=== PATIENT | female | born 1935 | race Caucasian/White ===

== ENCOUNTER → 2018-07-27 08:00 | Outpatient (CLI) | payer MEDICARE, BC, SELFPAY ==
--- NOTE | 2018-07-27 08:08 | MR_ITS ---
MR clavicle RT wo con HISTORY: Nodule in the midline of body of right clavicle increasing in size ITS.REASON: CLAVICULAR ASYMMETRY ORDERING PHYSICIAN: Red Thibodeaux MD PATIENT AGE: 83 years Comparison: None TECHNIQUE: Standard multiplanar multiecho sequences are performed without contrast. FINDINGS: The report has been delayed waiting on outside studies for comparison made available on 08/09/2018 No clavicular suspicious mass is evident. No destructive lesion. Mild hypertrophic changes are present at the sternoclavicular joint on both sides slightly greater on the right. No soft tissue mass apparent. There is mild acromioclavicular arthropathy with mild hypertrophic change of the right AC joint. There is slight increased T2 signal in the periarticular region of the AC joint suggesting mild pannus formation. There is a small amount of fluid anterior to the distal aspect of the clavicle and in the subcoracoid region as well as the right shoulder joint. The shoulder is incompletely imaged. No fracture or dislocation. IMPRESSION: 1. 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 Slight increased T2 signal at the AC joint suggesting minimal inflammatory change. No bony destructive process soft tissue mass or bony mass evident. 2. Small amount of fluid inferior to the distal clavicle, subcoracoid region, and in the right shoulder joint
== END ==
PROVIDERS: Family Provider Internal Medicine Adolescent Medicine; PCP Internal Medicine Adolescent Medicine; Visit Provider Internal Medicine Adolescent Medicine
DX: Q74.0 Other congenital malformations of upper limb(s), including shoulder girdle (principal); M89.311 Hypertrophy of bone, right shoulder
CPT/HCPCS: 73218

== ENCOUNTER → 2021-06-10 13:09 | Outpatient (CLI) | payer MEDICARE, BC, SELFPAY ==
--- NOTE | 2021-06-10 13:22 | XR_ITS ---
PROCEDURE: XR CHEST 2V CLINICAL HISTORY: FATIGUE, UNSPECIFIED Shortness of breath COMPARISON: CR CHEST PA & LAT from 07/13/2018 FINDINGS: Borderline cardiomegaly without failure. There is a new opacity in the left lower lung zone laterally measuring 16 mm. There is also increased density in the right lung base in the CP angle. Nonspecific opacity is present in the right perihilar region ill-defined and may be due to vascular overlap. Coronary artery calcifications and/or stents noted. Subchondral cysts are present in the left humeral head with osteoarthritic change of the left shoulder and degenerative changes of the spine IMPRESSION: New nodular opacity in the left lower lung zone with new increased density in the right CP angle. The density in the right CP angle could be related to pneumonia with small effusion. Nodular density on the left is indeterminate. Consider chest CT with contrast for further evaluation. Dictated by: Emiliano Fernando MD 06/10/2021 14:05 Emiliano Fernando MD in [facility] 06/10/2021 14:05
[2021-06-10 13:43] LABS: Basophils # 0.1 K/mm3 (0-0.2); Basophils % 0.8 % (0.1-2.0); Eosinophils # 0.2 K/mm3 (0.0-0.4); Eosinophils % 2.4 % (0.1-12.0); Hematocrit 35.2 % (37.0-47.0); Hemoglobin 11.7 g/dL (12.2-16.2); Lymphocytes # 2.8 K/mm3 (0.7-4.5); Lymphocytes % 28.4 % (10-50); Mean Corpuscular HGB Conc 33.2 g/dL (31.8-35.4); Mean Corpuscular Hemoglobin 30.6 pg (27.0-31.2); Mean Corpuscular Volume 92.2 fl (81-99); Mean Platelet Volume 7.6 fl (7.4-10.4); Monocytes # 0.4 K/mm3 (0.1-1.0); Monocytes % 4.3 % (1.7-9.3); Neutrophils # 6.2 K/mm3 (1.8-7.8); Neutrophils % 64.1 % (37.0-80.0); Platelet Count 344 K/mm3 (142-424); Red Blood Count 3.82 M/mm3 (4.20-5.40); Red Cell Distribution Width 13.2 % (11.5-17.5); White Blood Count 9.7 K/mm3 (4.8-10.8)
[2021-06-10 14:16] LABS: Alanine Aminotransferase 17 U/L (12-78); Albumin Level 3.8 g/dl (3.5-5.0); Albumin/Globulin Ratio 1.4 (1.1-1.8); Alkaline Phosphatase 62 U/L (38-126); Anion Gap 11.1 mEq/L (5-15); Aspartate Amino Transferase 34 U/L (14-36); Bilirubin,Total 0.6 mg/dl (0.2-1.3); Blood Urea Nitrogen 10 mg/dl (7-17); Calcium 9.3 mg/dl (8.4-10.2); Carbon Dioxide 28 mmol/L (22.0-30.0); Chloride 99 mmol/L (98-107); Estimated Glomerular Filt Rate 95 ml/min (>60); GFR (African American) 115 ML/MIN (>60); Globulin 2.8 g/dL (1.3-3.2); Glucose 98 mg/dl (74-100); Potassium 5.1 mmoL/L (3.5-5.1); Sodium 133 mmol/L (136-145); Total Protein,Serum 6.6 g/dl (6.3-8.2)
== END ==
PROVIDERS: PCP Internal Medicine Adolescent Medicine; Visit Provider Internal Medicine Adolescent Medicine
DX: R53.83 Other fatigue (principal)
CPT/HCPCS: 36415; 71046; 80053; 85025

== ENCOUNTER → 2021-06-18 12:59 | Outpatient (CLI) | payer MEDICARE, BC, SELFPAY ==
--- NOTE | 2021-06-18 13:02 | CT_ITS ---
PROCEDURE: CT CHEST WO CON CLINCAL INDICATION: LOWER RESP. TRACT INFECTION COMPARISON: No exams were available for comparison TECHNIQUE: Unenhanced CT chest with axial, coronal, and sagittal multiplanar reformations. Dose modulation, automated exposure control, and/or iterative reconstruction were used for dose reduction. FINDINGS: There is a focal airspace opacity noted in right upper lobe measuring 1.5 x 0.7 centimeters. Subsegmental multifocal airspace opacities are noted in the lungs bilaterally, worse in the right middle lobe in subpleural location measuring up to 1.5 centimeters. Minor multifocal tree-in-bud appearance noted in the right upper and lower lobes. The focal subsegmental opacity in the lingula is noted measuring 1.7 x 1 centimeter, as noted on the chest x-ray. No lobar consolidation. No evidence of pleural effusions. No pneumothorax. The central tracheobronchial tree is patent. The heart size is normal. No pericardial effusions. Atherosclerotic vascular calcification of the thoracic aorta and the coronary arteries are noted. Multiple calcified lymph nodes are noted in the mediastinum. No significant mediastinal adenopathy. Evaluation of chepe limited due to lack of intravenous contrast although no gross lymphadenopathy is noted. Evaluation of the upper abdominal solid viscera is limited due to lack of intravenous contrast. Splenic calcifications are noted, likely represents prior granulomatous disease. Vascular calcification of the visualized abdominal aorta. Few colonic diverticula without evidence of diverticulitis in the visualized colon. Kyphotic angulation of the thoracic spine is noted. Multilevel degenerative changes of the visualized thoracic spine. IMPRESSION: Multifocal airspace opacities in the lungs bilaterally, largest in the lingula measuring up to 1.7 x 1 centimeter. Minor multifocal tree-in-bud appearance in the right mid upper lobe. These may represent multifocal atypical infectious/inflammatory process. Close follow-up with noncontrast CT thorax in 3 months is recommended. Other chronic findings as described above. Dictated by: Jeannie Euceda 06/18/2021 15:02 Jeannie Euceda in [facility] 06/18/2021 15:02
== END ==
PROVIDERS: PCP Internal Medicine Adolescent Medicine; Visit Provider Internal Medicine Adolescent Medicine
DX: J22 Unspecified acute lower respiratory infection (principal)
CPT/HCPCS: 71250

== ENCOUNTER → 2021-11-12 09:44 | Outpatient (CLI) | payer MEDICARE, BC, SELFPAY ==
--- NOTE | 2021-11-12 09:49 | MR_ITS ---
PROCEDURE: MR LUMBAR SPINE WO/W CON CLINICAL INDICATION: ACUTE LEFT SIDED LOW BACK PAIN COMPARISON: MR RN CLINICAL RESOURCE/O MRI-L-SPINE W/O from 01/11/2013 TECHNIQUE: Standard multiplanar multiecho sequences are performed without contrast. 3-D MIP and myelographic images are also rendered and reviewed FINDINGS: Spinal cord ends at the L1 level. T11-T12: Bulging disc with a small right paracentral disc protrusion with mild right lateral recess narrowing. Minimal contour deformity of the cord on the right anteriorly. T12-L1: Degenerative disc disease with circumferential bulging disc with facet and ligamentum hypertrophy with moderate right and rwki-jf-[id number] left foraminal narrowing. These findings have developed since the previous exam. 3 mm retrolisthesis of T12. L1-L2: Concentric bulging disc osteophyte complex. 4 mm retrolisthesis of L1. Facet and ligamentum hypertrophy. Canal stenosis of 8 mm. Bilateral lateral recess narrowing. Bilateral foraminal narrowing. These findings have progressed since the previous exam. L2-L3: Concentric bulging disc with facet and ligamentum hypertrophic change with severe bilateral lateral recess narrowing, foraminal narrowing, and severe canal stenosis. The facet and ligamentum hypertrophy appears slightly worse. No significant change in the severe canal stenosis. L3-L4: 3 mm anterolisthesis of L3 with concentric bulging disc and severe facet and ligamentum hypertrophy with severe canal stenosis and severe bilateral lateral recess narrowing. The facet hypertrophy and canal stenosis appears slightly worse from the previous exam. The canal measures 3-4 mm in AP dimension. L4-5: Degenerative disc disease with facet and ligamentum hypertrophy with severe right foraminal narrowing and moderate to severe left foraminal narrowing with moderate to severe bilateral lateral recess narrowing not significantly changed. L5-S1: Type 2 endplate changes with degenerative disc disease and concentric bulging disc/disc osteophyte complex with facet and ligamentum hypertrophy with moderate right and severe left-sided foraminal narrowing along with severe canal stenosis not significantly changed. No enhancing lesions. IMPRESSION: Abnormal MRI of the lumbar spine with severe lumbar spondylosis with degenerative disc disease, bulging disc, disc osteophyte complexes, facet and ligamentum hypertrophy with varying degrees of foraminal and lateral recess narrowing and canal stenosis. Please see above for detailed description at each level Dictated by: Emiliano Fernando MD 11/18/2021 09:47 Emiliano Fernando MD in [facility] 11/18/2021 09:47
[2021-11-12 11:08] LABS: Blood Urea Nitrogen 15 mg/dl (7-17); Estimated Glomerular Filt Rate 80 ml/min (>60); GFR (African American) 96 ML/MIN (>60)
== END ==
PROVIDERS: PCP Internal Medicine Adolescent Medicine; Visit Provider Nurse Practitioner Family
DX: M54.42 Lumbago with sciatica, left side (principal); R29.898 Other symptoms and signs involving the musculoskeletal system; Z98.890 Other specified postprocedural states
CPT/HCPCS: 36415; 72158; 76376; 82565; 84520; A9576

== ENCOUNTER → 2021-12-23 14:06 | Outpatient (POV) | payer MEDICARE, BC, SELFPAY ==
[2021-12-23 14:29] VITALS: BP 152/71; PULSE 59; RESP 18; O2SAT 95; BMI 23.7
--- NOTE | 2021-12-24 06:36 | HMH.PMCON ---
Assessment and Plan (1) Degenerative joint disease (DJD) of lumbar spine Status: Acute Category: Medical Code(s): M47.816 - Spondylosis without myelopathy or radiculopathy, lumbar region (2) Lumbar radiculopathy Status: Acute Category: Medical Code(s): M54.16 - Radiculopathy, lumbar region (3) Spinal stenosis Status: Acute Category: Medical Code(s): M48.00 - Spinal stenosis, site unspecified (4) Neurogenic claudication Status: Acute Category: Medical Code(s): G95.19 - Other vascular myelopathies - Assessment and plan all Dx Assessment and Plan for all problems:: Patient does have MRI showing significant spinal stenosis along with narrowing throughout the lumbar spine. She does have neurogenic claudication type symptoms. She has not had injective therapy. We will schedule her for a lumbar epidural steroid injection at L4-L5 with an epidurogram to determine if she is an appropriate candidate for mild procedure. She is not on any anticoagulation therapy and is not diabetic. Possible side effects of corticosteroids have been discussed with the patient. Risks and benefits of the procedure have been explained to the patient. Patient would like to proceed with the procedure. Patient has been instructed to contact the clinic with any concerns before the next appointment. Dr. Gamboa has reviewed this note and agrees with this plan of care. This note was dictated using voice recognition software and make contain errors or omissions. HPI - Data of Consult Patient: new to practice Consult date: 12/23/21 Requesting Physician: Denise Gilmore APRN - Consult Narrative Reason for consult: low back pain History of present illness: Ms. Avila is a 86 year old female who presents today for consultation for chronic low back pain. The patient is complaining of low back pain with radiation into left hip, left leg and left knee. The pain does radiate to the left foot. Pain has been ongoing for approximately 3 months. She denies any falls trauma or accidents that would have contributed to the pain. She does report that she is having sensations of her left knee and leg giving out . She says that she manages her pain with marijuana use daily along with anti-inflammatories. This does not give her long-term relief, but does help manage the pain daily. She does rate her pain a 4 out of 10 today. The pain is also going into the left buttock and posterior thigh area. Pain is made worse with standing and walking and improves with sitting. Leaning forward gives the patient relief. She has tried physical therapy in the past along with home stretching. CC: Denise Gilmore APRN [facility] History I have reviewed the patient's past medical history: Yes *Have you ever received a pneumonia vaccine?: No *Have you received a flu vaccine this season?: Yes - *Social History Smoking Status: Never smoker Alcohol Intake: never *Occupational Status:: unemployed *Travel in the last 8 weeks: None Family Hx:: Unable to obtain Review of Systems - Review of Systems Review of Systems General: No recent weight changes, no fever, no sleep disturbances Respiratory: No cough, no shortness of air, no recurring pulmonary infections Cardiovascular/peripheral vascular: No chest pain, no palpitations, no edema, no shortness of breath Gastrointestinal: No new onset incontinence, normal bowel movements reported Genitourinary: No new onset incontinence Musculoskeletal: Left low back pain with radiation into left buttock, left hip, left leg with left leg giving out Psychiatric: [Normal mood/affect] Neurological: [Denies weakness in extremities], [denies balance issues] Meds Home Medications Medication Instructions Recorded Confirmed Type Amlodipine Besylate 5 mg PO DAILY 12/23/21 12/23/21 History Gabapentin [Gabapentin 100mg Cap] 100 mg PO DAILY 12/23/21 12/23/21 History hydroCHLOROthiazide [HCTZ 25mg 25 mg PO DAILY
== END ==
PROVIDERS: Visit Provider Clinical Nurse Specialist Family Health
DX: M47.896 Other spondylosis, lumbar region (principal); M54.16 Radiculopathy, lumbar region; M48.00 Spinal stenosis, site unspecified; G95.19 Other vascular myelopathies
CPT/HCPCS: 99202; G0463

== ENCOUNTER 2021-12-27 11:17 | Day surgery (SDC) | payer MEDICARE, BC, SELFPAY ==
[2021-12-27 11:37] VITALS: BP 106/77; PULSE 60; RESP 18; TEMP 36.6; O2SAT 98; BMI 23.7
[2021-12-27 12:10] VITALS: BP 120/55; PULSE 51; RESP 18; O2SAT 97
[2021-12-27 12:11] VITALS: PULSE 52; RESP 18; O2SAT 95
[2021-12-27 12:20] VITALS: BP 123/63; PULSE 57; RESP 20; O2SAT 96
--- NOTE | 2021-12-27 12:35 | HMH.PMPROC ---
- Procedure Date: 12/27/21 Time: 12:35 Anesthesiologist:: Doroteo Gamboa MD Complications:: None Pre-procedure Diagnosis:: Degenerative disc disease of lumbar spine with lumbar radiculopathy symptoms with lumbar spinal stenosis and neurogenic claudication symptoms Post-procedure Diagnosis:: Same Indications for Procedure:: Patient is a pleasant 86-year-old white female who we are treating for low back pain with lumbar radiculopathy symptoms. She has increasing low back pain radiating down both legs. She also has neurogenic claudication symptoms with increasing pain while standing and walking. We will do a lumbar pleural steroid injection with epidurogram today to assess levels of stenosis and candidacy for minimally invasive lumbar decompression. Procedure Details:: Informed consent was obtained and the risk and benefits of the procedure was explained to the patient. The patient was taken to the procedure room. The patient was placed prone on the procedure table. The patient was prepped and draped in sterile fashion. C-arm fluoroscopy was used to view the lumbar spine. Skin and subcutaneous tissues were anesthetized using lidocaine. I placed an 18-gauge epidural needle and advanced into the L4-L5 interspace using fluoroscopic guidance and [id number] to air. After confirmation of needle placement in the epidural space with dye I injected 2 mL of lidocaine 1.5% with Depo-Medrol 80 mg. Patient tolerated the procedure well with no complications. Plan and Disposition:: Based on epidurogram she is a good candidate for minimally invasive lumbar decompression bilateral L3-L4 and L4-L5. We will schedule this to see if this helps with her neurogenic claudication symptoms.
== END 2021-12-27 12:20 | disposition home or self-care (01) ==
LOC: SC.PAINP 11:18
PROVIDERS: PCP Internal Medicine Adolescent Medicine; Visit Provider Anesthesiology
DX: M51.16 Intervertebral disc disorders with radiculopathy, lumbar region (principal); M48.062 Spinal stenosis, lumbar region with neurogenic claudication; I10 Essential (primary) hypertension
CPT/HCPCS: 62323; J1040; Q9966

== ENCOUNTER → 2022-01-16 09:54 | Outpatient (POV) | payer MEDICARE, BC, SELFPAY ==
[2022-01-16 10:10] VITALS: BP 135/62; PULSE 58; RESP 18; O2SAT 98; BMI 21.6
--- NOTE | 2022-01-16 15:33 | P.CONS_ITS ---
[facility] Pain Management SOAP Note Subjective:: Patient is a very pleasant 86-year-old white female who presents today for follow-up. She recently underwent a lumbar epidural steroid injection under fluoroscopy and states that she did not get any pain relief since undergoing this injection. An epidurogram was also performed at that time which dem onstrated stenosis at L3-L4 and L4-L5. She was deemed a good candidate for minimally invasive lumbar decompression procedure. However, today the patient states that she is very reluctant to proceed with anything more invasive than an injection at this time. Continues to experience significant low back and leg pain that is worse with prolonged standing and walking and better with sitting down, laying down, or leaning forward. She rates her pain today as a 4 out of 10. ROS General: No recent weight changes, no fever, no sleep disturbances Respiratory: No cough, no shortness of air, no recurring pulmonary infections Cardiovascular/peripheral vascular: No chest pain, no palpitations, no edema, no shortness of breath Gastrointestinal: No new onset incontinence, normal bowel movements reported Genitourinary: No new onset incontinence Musculoskeletal: Low back pain and leg pain Psychiatric: [Normal mood/affect] Neurological: Denies weakness in extremities Objective:: General: Alert and oriented x3, no acute distress, pleasant and cooperative Lungs: Resps E/U, symmetric chest expansion Eyes: PERRL Musculoskeletal: limited flexion and extension of the lumbar spine secondary to pain. Deep tendon reflexes were normal in bilateral lower extremities. Motor exam was grossly intact in the bilateral lower extremities, antalgic gait noted. Neurological: Speech is clear, user interface developer equal, no gross sensory deficits Assessment:: Degenerative disc disease of lumbar spine with lumbar radiculopathy, lumbar spinal stenosis with neurogenic claudication Plan:: Yoav with the patient that I believe she will be a good candidate for minimally invasive lumbar decompression after reviewing her MRI and epidurogram findings. She states that she would like a brochure today and will need some time to think this over before proceeding. We will follow-up with this patient in 1 month for reassessment of her chronic pain symptoms and further discussion whether she would like to proceed with the mild procedure. [facility] History Medical History: Reports:: Cancer (skin), Hyperlipidemia, Hypertension Denies:: Diabetes Mellitus Type 2 *Have you ever received a pneumonia vaccine?: Yes *Have you received a flu vaccine this season?: Yes Other Medical History: Reports: Arthritis Other Surgeries: Yes: Appendectomy, Hysterectomy-Total - *Social History Smoking Status: Never smoker Alcohol Intake: never *Occupational Status:: unemployed *Travel in the last 8 weeks: None Family Hx:: Other
== END ==
PROVIDERS: Visit Provider Anesthesiology Pain Medicine
DX: M51.16 Intervertebral disc disorders with radiculopathy, lumbar region (principal); M48.062 Spinal stenosis, lumbar region with neurogenic claudication
CPT/HCPCS: 99212; G0463

== ENCOUNTER → 2022-02-13 09:40 | Outpatient (POV) | payer MEDICARE, BC, SELFPAY ==
[2022-02-13 10:14] VITALS: BP 144/60; PULSE 57; RESP 20; TEMP 36.7; O2SAT 97; BMI 22.1
--- NOTE | 2022-02-13 11:06 | HMH.PAINSOAP ---
[facility] Pain Management SOAP Note Subjective:: Patient is a pleasant 87-year-old female who is here for a follow up after lumbar epidural steroid injection. Patient is currently being treated for degenerative disc disease of the lumbar spine with lumbar radiculopathy symptoms, lumbar spinal stenosis with neurogenic claudication. After the procedure, patients reports 60 to 70% relief and rates pain today at 6 out of 10. Patient denies any issues after the procedure. Patient is scheduled for a minimally invasive lumbar decompression on Thursday of next week. Pain management, patient is taking Aleve, Tylenol, Excedrin [facility] number [id number] with an active morphine equivalent 0. Drug screens have been reviewed and appropriate. General: No recent weight changes, no fever, no sleep disturbances Respiratory: No cough, no shortness of air, no recurring pulmonary infections Cardiovascular/peripheral vascular: No chest pain, no palpitations, no edema, no shortness of breath Gastrointestinal: No new onset incontinence, normal bowel movements reported Genitourinary: No new onset incontinence Musculoskeletal: Low back pain Psychiatric: [Normal mood/affect] Neurological: [Denies weakness in extremities], [denies balance issues] Objective:: General: Alert and oriented x3, no acute distress, pleasant and cooperative, [on room air] Lungs: Respirations even and unlabored, symmetrical chest expansion Eyes: PERRL Musculoskeletal: Flexion and extension of lumbar [spine] somewhat guarded secondary to pain, [antalgic gait noted] Neurological: Speech clear, no gross sensory deficit Assessment:: Degenerative disc disease of the lumbar spine with lumbar radiculopathy symptoms Lumbar stenosis with neurogenic claudication Plan:: We have been treating this patient for chronic low back pain. She has tried and failed conservative Rippy such as oral medication, physical therapy, at home exercise return in 6 weeks. We have this patient scheduled for a minimally invasive lumbar decompression procedure on Thursday next week. I have discussed this procedure in detail with the patient. Patient would still like to proceed with this procedure. Patient is currently taking Aleve, Tylenol, and Excedrin for pain management. I recommend the patient to stop taking Aleve and Excedrin due to her age. She is not any blood thinners. I will however start her on meloxicam 7.5 mg daily. We will follow up with the patient after her minimally invasive lumbar decompression procedure. We will also follow up on the efficacy of the meloxicam. Patient has been instructed to contact the clinic with any concerns before the next appointment. Dr. Gamboa has reviewed this note and agrees with this plan of care. This note was dictated using voice recognition software and make contain errors or omissions. [facility] History Medical History: Reports:: Cancer (skin), Hyperlipidemia, Hypertension Denies:: Diabetes Mellitus Type 2 *Have you ever received a pneumonia vaccine?: Yes *Have you received a flu vaccine this season?: Yes Other Medical History: Reports: Arthritis Other Surgeries: Yes: Appendectomy, Hysterectomy-Total - *Social History Smoking Status: Never smoker Alcohol Intake: never *Occupational Status:: other *Travel in the last 8 weeks: None Family Hx:: Other
== END ==
PROVIDERS: Visit Provider Student in an Organized Health Care Education/Training Program
DX: M51.16 Intervertebral disc disorders with radiculopathy, lumbar region (principal); M48.062 Spinal stenosis, lumbar region with neurogenic claudication
CPT/HCPCS: 99212; G0463

== ENCOUNTER → 2022-02-17 13:14 | Outpatient (CLI) | payer MEDICARE, BC, SELFPAY ==
[2022-02-17 14:41] LABS: Chloride 94 mmol/L (98-107); Potassium 3.7 mmoL/L (3.5-5.1); Sodium 131 mmol/L (136-145)
[2022-02-17 14:44] LABS: Anion Gap 8.7 mEq/L (5-15); Blood Urea Nitrogen 13 mg/dl (7-17); Calcium 8.8 mg/dl (8.4-10.2); Carbon Dioxide 32 mmol/L (22.0-30.0); Estimated Glomerular Filt Rate 68 ml/min (>60); GFR (African American) 82 ML/MIN (>60); Glucose 106 mg/dl (74-100)
[2022-02-17 14:59] LABS: Basophils # 0.1 K/mm3 (0-0.2); Basophils % 0.9 % (0.1-2.0); Eosinophils # 0.1 K/mm3 (0.0-0.4); Eosinophils % 1.2 % (0.1-12.0); Hemoglobin 12.5 g/dL (12.2-16.2); Lymphocytes # 2.4 K/mm3 (0.7-4.5); Lymphocytes % 34.6 % (10-50); Mean Corpuscular HGB Conc 31.4 g/dL (31.8-35.4); Mean Corpuscular Hemoglobin 31.9 pg (27.0-31.2); Mean Corpuscular Volume 101.6 fl (81-99); Mean Platelet Volume 8.4 fl (7.4-10.4); Monocytes # 0.4 K/mm3 (0.1-1.0); Monocytes % 5.9 % (1.7-9.3); Neutrophils % 57.4 % (37.0-80.0); Platelet Count 256 K/mm3 (142-424); Red Blood Count 3.94 M/mm3 (4.20-5.40); Red Cell Distribution Width 13.1 % (11.5-17.5); White Blood Count 6.9 K/mm3 (4.8-10.8)
== END ==
PROVIDERS: Visit Provider Anesthesiology
DX: Z01.818 Encounter for other preprocedural examination (principal); Z11.52 Encounter for screening for COVID-19; M51.36 Other intervertebral disc degeneration, lumbar region
CPT/HCPCS: 36415; 80048; 85025; C9803; U0003; U0005

== ENCOUNTER 2022-02-18 07:40 | Day surgery (SDC) | payer MEDICARE, BC, SELFPAY ==
[2022-02-18 09:20] VITALS: BP 144/100; PULSE 55; RESP 18; TEMP 36.3; O2SAT 97; BMI 22.1
--- NOTE | 2022-02-18 09:37 | HMH.ANESCL ---
[facility] Anesthesia Checklist - Patient Identification Patient Identification: Arm Band - Structural Data Admitted From: Home Planned Operative Procedure/s: Lumbar decompression Consent for Planned Operative Procedure(s) Verified: Yes - NPO Status Verified Time NPO: 00:00 - Airway Assessment C-Spine Mobility Assessed: Yes TMJ Mobility Assessed: Yes Dentition: Good Dentition - Neurological Assessment Level of Consciousness: Awake Hx Seizures: No Numbness or tingling in extremities: No - Anesthesia Plan Anesthesia Risk discussed: Yes Anesthesia Plan: Verified ASA Class: III Anesthesia Type: MAC [facility] History I have reviewed the patient's past medical history: Yes Medical History: Reports:: Atrial Fibrillation, Cancer (skin), Hyperlipidemia, Hypertension, Myocardial Infarction Denies:: Diabetes Mellitus Type 2 *Have you ever received a pneumonia vaccine?: Yes *Have you received a flu vaccine this season?: Yes Other Medical History: Reports: Arthritis Anesthesia experience/problems:: None Other Surgeries: Yes: Appendectomy, Hysterectomy-Total - *Social History Smoking Status: Never smoker Alcohol Intake: never Substance Use Type: denies use *Occupational Status:: other *Travel in the last 8 weeks: None Family Hx:: Other
--- NOTE | 2022-02-18 10:42 | HMH.OPNOTE ---
Date of procedure: 02/18/22 Pre-op Diagnosis:: Degenerative disc disease of lumbar spine with lumbar radiculopathy and lumbar spinal stenosis Post-op Diagnosis:: Same Procedure performed:: Minimally invasive lumbar decompression at L3-4 and L4-L5 bilaterally Surgeon:: Anali Solorzano MD MARINE ENGINE MACHINIST:: Alexandro Odonnell Anesthesia: MAC Estimated blood loss (mL): 0 Operative findings:: n/a Operative note:: Informed consent was obtained and the risk and benefits of the procedure was explained to the patient. The patient was taken to the operating room and placed prone on the procedure table. The patient was prepped and draped in sterile fashion. C-arm fluoroscopy was used to view the lumbar spine. The skin and subcutaneous tissues were anesthetized using lidocaine. A epidural needle was inserted and advanced into the L3-L4 interspace. After confirmation of needle placement in the epidural space, dye was injected in a contralateral oblique view. There was an epidurogram seen at L3-L4 and L4-L5. Significant stenosis was seen at L3-L4 and L4-L5. The skin and subcutaneous tissues again were anesthetized using lidocaine. An incision was made and a access trocar was inserted and advanced to contact at the superior aspect of the L4 lamina on the left side. And a contralateral oblique view the side was viewed. Using a bone rongeur and tissue sculptor we debulked bone from the L3-L4 and L4-L5 interspace on the left side. We then used the tissue sculptor to debulk ligament at the L3-L4 and L4-L5 interspace on the left side. We then moved over to the right side and debulked bone and ligament from L3-L4 and L4-L5 on the right side. There is opening of the stenosis at L3-L4 and L4-L5 bilaterally. The access trocar was removed. A total of 3 mL's of dye was used. There is good spread of dye above and below this level as well. The epidural needle was removed and dressings were placed. This encounter for exam is for normal comparison and control in a clinical research program Patient was taken to recovery in stable condition. Patient was discharged home neurologically intact and with good relief of pain symptoms. Plan and disposition: We will follow-up with this patient in 2 weeks. Will reevaluate symptoms at that time. I will prescribe Bactrim DS 1 tablet p.o. twice daily for 5 days #10 for postoperative antibiotics. Condition: stable Disposition: PACU Complications:: none
[2022-02-18 13:00] VITALS: BP 115/61; PULSE 54; RESP 16; TEMP 36.3; O2SAT 98
[2022-02-18 13:15] VITALS: BP 121/75; PULSE 56; RESP 16; O2SAT 97
[2022-02-18 13:30] VITALS: BP 133/66; PULSE 56; RESP 16; O2SAT 97
[2022-02-18 13:45] VITALS: BP 124/67; PULSE 56; RESP 16; O2SAT 98
[2022-02-18 14:00] VITALS: BP 153/75; PULSE 56; RESP 16; TEMP 36.3; O2SAT 95
== END 2022-02-18 14:00 | disposition home or self-care (01) ==
LOC: OR 07:41
PROVIDERS: PCP Internal Medicine Adolescent Medicine; Visit Provider Anesthesiology Pain Medicine
DX: M48.062 Spinal stenosis, lumbar region with neurogenic claudication (principal); M51.16 Intervertebral disc disorders with radiculopathy, lumbar region; Z00.6 Encounter for examination for normal comparison and control in clinical research program; I48.91 Unspecified atrial fibrillation; E78.5 Hyperlipidemia, unspecified; I10 Essential (primary) hypertension; I25.2 Old myocardial infarction; M19.90 Unspecified osteoarthritis, unspecified site; Z79.899 Other long term (current) drug therapy; Z85.828 Personal history of other malignant neoplasm of skin; Z90.49 Acquired absence of other specified parts of digestive tract; Z88.8 Allergy status to other drugs, medicaments and biological substances; Z88.5 Allergy status to narcotic agent
CPT/HCPCS: 0275T; 96374; C1889; J2704

== ENCOUNTER → 2022-03-31 09:52 | Outpatient (POV) | payer MEDICARE, BC, SELFPAY ==
--- NOTE | 2022-03-31 10:13 | P.CONS_ITS ---
[facility] Pain Management SOAP Note Subjective:: This patient is a very pleasant 87-year-old white female that returns today regarding left posterior hip pain that she describes as constant, dull, aching, sharp stabbing at times. Patient states pain is intense in the morning when attempting to get out of bed. However, when she starts moving the pain does decrease to some degree. Patient has had a mild procedure recently. Also, has had some injections in the lumbar spine in the past. Patient states none of these procedures have really provided much relief. Upon examination patient does not have much midline pain. However, intense extreme point tenderness over the left SI joint. Pain increases when sitting or standing for any length of time. Pain increases during transition of sitting to a standing position. I discussed in detail with the patient regarding left SI joint injection. She wishes to proceed. Objective:: Is awake alert Mcnabb x3. No acute distress. Flexion-extension lumbar spine somewhat guarded secondary to pain. Deep tendon reflexes upper lower extremities normal. Motor strength upper and lower extremities normal. There is no gross sensory deficit. Gait is normal. Assessment:: Degenerative disc disease lumbar spine multilevels. Lumbar radiculopathy symptoms at times. Left sacroiliitis. Plan:: We will plan a left SI joint injection. I discussed in detail with the patient regarding the injection. Discussed options. Answered her questions. [facility] History I have reviewed the patient's past medical history: Yes Medical History: Reports:: Atrial Fibrillation, Cancer (skin), Hyperlipidemia, Hypertension, Myocardial Infarction Denies:: Diabetes Mellitus Type 1, Diabetes Mellitus Type 2, Internal Pacemaker, MRSA, Seizures *Have you ever received a pneumonia vaccine?: No *Have you received a flu vaccine this season?: No Other Medical History: Reports: Arthritis. Denies: Blood Transfusion Reaction Other Surgeries: Yes: Appendectomy, Hysterectomy-Total. No: Pacemaker Amputation: No - *Social History Smoking Status: Never smoker Alcohol Intake: never Substance Use Type: denies use *Occupational Status:: retired Housing: house *Travel in the last 8 weeks: None Family Hx:: Cancer
[2022-03-31 11:47] VITALS: BP 136/85; PULSE 49; RESP 18; TEMP 36.6; O2SAT 97; BMI 22.1
== END ==
PROVIDERS: Visit Provider Nurse Anesthetist, Certified Registered
DX: M51.16 Intervertebral disc disorders with radiculopathy, lumbar region (principal); M46.1 Sacroiliitis, not elsewhere classified
CPT/HCPCS: 99212; G0463

== ENCOUNTER 2023-03-12 13:11 | Inpatient (IN) | payer MEDICARE, BC, SELFPAY ==
[2023-03-12] VITALS (11 sets, daily range): BP systolic 149–213; BP diastolic 54–104; PULSE 66–78; RESP 17–18; TEMP 36.7–37.9; O2SAT 92–98; BMI 23.3; BMI 28.3; BMI 22.0
--- NOTE | 2023-03-12 13:33 | CT_ITS ---
FINAL REPORT CLINICAL HISTORY: FALL FINDINGS: Axial images of the head were obtained without contrast. Coronal reformatted images were also obtained. This study was performed with techniques to keep radiation doses as low as reasonably achievable (ALARA). Individualized dose reduction techniques using automated exposure control or adjustment of mA and/or kV according to the patient''s size were employed. There is generalized age-appropriate atrophy. Periventricular low-attenuation areas are seen consistent with mild chronic ischemic changes. There is no evidence of intracranial hemorrhage or mass. There is no evidence of acute infarct. There is no evidence of shift of the midline structures. No skull abnormality is seen on the bone window images. IMPRESSION: Atrophy and mild periventricular chronic ischemic changes. No acute intracranial abnormality identified. Reviewed, Interpreted and Dictated by Jaspreet Nelson III, MD Transcribed by Marycarmen Gordon Authenticated and [facility]
--- NOTE | 2023-03-12 13:33 | CT_ITS ---
FINAL REPORT CLINICAL HISTORY: FALL FINDINGS: Axial CT images of the cervical spine were obtained without contrast. Sagittal and coronal reformatted images were also obtained. This study was performed with techniques to keep radiation doses as low as reasonably achievable (ALARA). Individualized dose reduction techniques using automated exposure control or adjustment of mA and/or kV according to the patient's size were employed. CT CERVICAL SPINE W/O CONTRAST There is no evidence of fracture or dislocation. There is anterolisthesis of C3 on C4, C4 on C5, C5 on C6, C6 on C7 and C7 on T1. There are moderate and severe degenerative changes. There is multilevel neural foraminal narrowing. There is a chronic calcification posterior to C4. There is no evidence of canal stenosis. No paraspinous soft tissue abnormality is seen. Limited images of the upper thorax are unremarkable. IMPRESSION: No fracture or acute bony abnormality identified. Anterolisthesis as detailed above. Moderate and severe degenerative changes with neural foraminal narrowing. Reviewed, Interpreted and Dictated by Jaspreet Nelson III, MD Transcribed by Marycarmen Gordon Authenticated and [facility]
--- NOTE | 2023-03-12 13:34 | XR_ITS ---
FINAL REPORT CLINICAL HISTORY: FALL WITH ARM PAIN FINDINGS: Left humerus Two views were obtained. There is no acute fracture or dislocation. There are moderate degenerative changes of the shoulder and elbow. No soft tissue abnormality is identified. IMPRESSION: No acute process. Reviewed, Interpreted and Dictated by Jaspreet Nelson III, MD Transcribed by Tasia Eastman Authenticated and . [facility]
--- NOTE | 2023-03-12 13:34 | XR_ITS ---
FINAL REPORT CLINICAL HISTORY: FALL WITH ARM PAIN FINDINGS: Left shoulder Three views were obtained. There is no acute fracture or dislocation. There are moderate degenerative changes. There is mild superior subluxation of the humerus. No soft tissue abnormality is identified. IMPRESSION: Mild superior subluxation of the humerus. Reviewed, Interpreted and Dictated by Jaspreet Nelson III, MD Transcribed by Tasia Eastman Authenticated and . [facility]
--- NOTE | 2023-03-12 13:35 | CT_ITS ---
FINAL REPORT TECHNIQUE: Axial images through the pelvis were performed by computed tomography without contrast. Sagittal and coronal reconstruction images were performed. This study was performed with techniques to keep radiation doses as low as reasonably achievable (ALARA). Individualized dose reduction techniques using automated exposure control or adjustment of mA and/or kV according to the patient's size were employed. CLINICAL HISTORY: FALL FINDINGS: CT PELVIS WITHOUT CONTRAST There is no acute fracture or dislocation. Bony alignment is normal. There are moderate degenerative changes. The musculature is intact. There is no soft tissue abnormality. IMPRESSION: No fracture or acute abnormality identified. Reviewed, Interpreted and Dictated by Jaspreet Nelson III, MD Transcribed by Marycarmen Gordon Authenticated and [facility]
--- NOTE | 2023-03-12 13:41 | CT_ITS ---
FINAL REPORT CLINICAL HISTORY: FALL FINDINGS: Axial CT images of the thoracic spine were obtained without contrast. Sagittal and coronal reformatted images were also obtained. This study was performed with techniques to keep radiation doses as low as reasonably achievable (ALARA). Individualized dose reduction techniques using automated exposure control or adjustment of mA and/or kV according to the patient's size were employed. CT THORACIC SPINE W/O CONTRAST There is no evidence of fracture. The vertebral alignment is normal. There is moderate and severe degenerative change. There is no evidence of significant canal stenosis. No paraspinous soft tissue abnormality is identified. IMPRESSION: No fracture or acute bony abnormality. No significant central canal stenosis. Moderate and severe degenerative change. Reviewed, Interpreted and Dictated by Jaspreet Nelson III, MD Transcribed by Marycarmen Gordon Authenticated and [facility]
--- NOTE | 2023-03-12 13:41 | CT_ITS ---
FINAL REPORT TECHNIQUE: Axial imaging of the lumbar spine was obtained without contrast. Sagittal and coronal reformatted images were also obtained and reviewed. This study was performed with techniques to keep radiation doses as low as reasonably achievable (ALARA). Individualized dose reduction techniques using automated exposure control or adjustment of mA and/or kV according to the patient's size were employed. CLINICAL HISTORY: FALL FINDINGS: Axial imaging of the lumbar spine was obtained without contrast. Sagittal and coronal reformatted images were also obtained and reviewed.This study was performed with techniques to keep radiation doses as low as reasonably achievable (ALARA). Individualized dose reduction techniques using automated exposure control or adjustment of mA and/or kV according to the patient's size were employed. CT LUMBAR SPINE W/O CONTRAST There is no fracture. There is mild anterolisthesis of L3 on L4. Bony alignment is otherwise normal. There are moderate and severe degenerative changes. There is vacuum disc phenomenon at multiple levels. There is multilevel neural foraminal narrowing. There is severe central canal stenosis with an AP diameter of the thecal sac of 4 mm at the L 3 4 level. IMPRESSION: No acute fracture or or other acute abnormality. Moderate and severe degenerative change with multilevel neural foraminal narrowing. Severe central canal stenosis at L3-4. Reviewed, Interpreted and Dictated by Jaspreet Nelson III, MD Transcribed by Marycarmen Gordon Authenticated and [facility]
--- NOTE | 2023-03-12 13:41 | PC.NURSE ---
pt on bedpan at this time
--- NOTE | 2023-03-12 13:42 | CT_ITS ---
FINAL REPORT TECHNIQUE: Axial CT images were performed from the lung apices through the upper abdomen. Coronal reformats were submitted. This study was performed with techniques to keep radiation doses as low as reasonably achievable (ALARA). Individualized dose reduction techniques using automated exposure control or adjustment of mA and/or kV according to the patient's size were employed. CLINICAL HISTORY: right rib and paraspinal pain after fall FINDINGS: There is mild cardiomegaly. There is no axillary adenopathy. There is no hilar or mediastinal mass or adenopathy. There is no pericardial or pleural effusion. There is mild atelectasis. No pneumothorax is identified. There is mild scarring. There are numerous small, less than 5 mm bilateral pulmonary nodules which are nonspecific but favor inflammatory. No fracture is identified on the bone window images. IMPRESSION: No fractures identified. Bilateral pulmonary nodules which are nonspecific. If indicated, consider follow-up CT in 6 months. Reviewed, Interpreted and Dictated by Jaspreet Nelson III, MD Transcribed by Tasia Eastman Authenticated and [facility]
--- NOTE | 2023-03-12 13:43 | CT_ITS ---
FINAL REPORT TECHNIQUE: Axial images through the abdomen and pelvis were performed without contrast. This study was performed with techniques to keep radiation doses as low as reasonably achievable, (ALARA). Individualized dose reduction techniques using automated exposure control or adjustment of mA and/or kV according to the patient's size were employed. CLINICAL HISTORY: fall, right lower chest wall pain and spinal pain FINDINGS: ABDOMEN: Limited images of the liver are unremarkable. There is moderate vascular calcification. The gallbladder is present. The spleen is normal. No adrenal mass is identified. The aorta is normal in caliber. There is no significant free fluid or adenopathy. There is no nephrolithiasis. There is no hydronephrosis. PELVIS: The appendix is not identified. There are multiple colonic diverticula. The urinary bladder is unremarkable. There is no significant free fluid or adenopathy. IMPRESSION: No evidence of organ injury or hemoperitoneum on these unenhanced images. Reviewed, Interpreted and Dictated by Jaspreet Nelson III, MD Transcribed by Tasia Eastman Authenticated and [facility]
--- NOTE | 2023-03-12 13:44 | XR_ITS ---
FINAL REPORT CLINICAL HISTORY: fall, pain FINDINGS: Left elbow Three views were obtained. There is no acute fracture or dislocation. There are moderate degenerative changes. The lateral view is rotated. No soft tissue abnormality is identified. IMPRESSION: No acute process. Reviewed, Interpreted and Dictated by Jaspreet Nelson III, MD Transcribed by Tasia Eastman Authenticated and [facility]
--- NOTE | 2023-03-12 13:52 | PC.NURSE ---
pt off of bedpan. no complications
--- NOTE | 2023-03-12 13:56 | HMH.EDGENADL ---
Discharge Plan Disposition Patient Disposition: Admitted As Inpatient Chief Complaint: Fall Clinical Impressions Clinical Impression: Rhabdomyolysis, AMS (altered mental status) Discharge ED Provider: Sumit Sultana General Adult HPI General Chief complaint: Fall Stated complaint: Fall Time Seen by Provider: 03/12/23 13:17 Mode of Arrival: EMS Source of Information: Patient Limitations: No Limitations Description of Symptoms (Recalled from ER Triage Doc. by RN): c/o left shoulder pain after falling at home out of the bed. Pt denies any LOC, Pt was on the floor approx 1 hour History of Present Illness HPI narrative: This is an 88-year-old female with history of CAD, hypertension, hyperlipidemia presenting with fall. Patient is confused on arrival, per daughter. History largely obtained with patient, EMS, daughter. Patient telling 2 stories, 1 she was doing laundry, 2 she was getting out of bed and fell. Was down for unknown period of time. Patient called EMS and was brought to the ER. Patient complaining of left shoulder pain that is severe, does not radiate, not associated with neurologic deficits. Patient denying headache, vision changes, numbness/weakness/tingling anywhere, nausea or vomiting, abdominal pain, but has right-sided chest wall pain, neck pain, midline spinal tenderness in thoracic and lumbar spines. Denies bowel or bladder dysfunction, saddle anesthesia, or any other concerns. Related Data Home Medications Medication Instructions Recorded Confirmed amlodipine 5 mg tablet 5 mg PO DAILY daily 12/23/21 01/06/23 cholecalciferol (vitamin D3) 25 25 mcg PO DAILY 01/06/23 01/06/23 mcg (1,000 unit) capsule ezetimibe 10 mg tablet 10 mg PO DAILY 01/06/23 01/06/23 isosorbide mononitrate 30 mg 30 mg PO BID 01/06/23 01/06/23 tablet,extended release 24 hr sotalol 80 mg tablet (Sotalol AF) 80 mg PO BID 01/06/23 01/06/23 Previous Rx's Medication Instructions Recorded escitalopram oxalate 5 mg tablet 5 mg PO DAILY #30 tabs 01/06/23 (Lexapro) Allergies Allergy/AdvReac Type Severity Reaction Status Date / Time AMNIOPHYLLINE Allergy Severe HIGH HEART Uncoded 11/17/17 14:54 RATE Codeine Allergy Unknown itching Uncoded 01/06/23 10:34 Meperidine Allergy Unknown Uncoded 11/17/17 14:54 [facility] Disclaimer: The information contained in this section may have been updated after the patient was seen, as this information can be updated by other users. Medical History (Updated 03/12/23 @ 17:37 by Sumit Sultana MD) Hypertension Myocardial infarction Surgical History (Updated 01/06/23 @ 10:43 by Cassi Bowser LPN) H/O heart artery stent History of appendectomy History of hysterectomy History of knee replacement History of surgery on arm Family History (Updated 01/06/23 @ 10:44 by Cassi Bowser LPN) Sister Cancer Father Cancer Mother Stroke Social History (Updated 01/06/23 @ 10:45 by Cassi Bowser LPN) Smoking Status: Never smoker years smoked: 2 how long ago did patient quit smoking: >20 years alcohol intake: current substance use type: denies use current occupational status: retired Travel in the last 8 weeks: None household members: none housing: house caffeine: Yes ROS Obtained: Yes All systems reviewed & no additional complaints except as documented Physical Exam General General appearance: alert and in no apparent distress Head Head exam: atraumatic, normocephalic and normal inspection Eye Eye exam: Present normal appearance, PERRL and EOMI ENT ENT exam: Present normal exam, normal oropharynx, mucous membranes moist, TM's normal bilaterally and normal external ear exam Neck Neck exam: Present trachea midline and other (c collar in place); Absent meningismus or lymphadenopathy Chest Chest inspection: Present normal inspection and symmetric chest wall rise; Absent tenderness, rash or abscess Respiratory Respiratory exam: Present normal l
[2023-03-12 13:57] LABS: Alanine Aminotransferase 32 U/L (12-78); Albumin Level 4.7 g/dl (3.5-5.0); Albumin/Globulin Ratio 1.4 (1.1-1.8); Alkaline Phosphatase 74 U/L (38-126); Aspartate Amino Transferase 76 U/L (14-36); Bilirubin,Total 0.8 mg/dl (0.2-1.3); Blood Urea Nitrogen 17 mg/dl (7-17); Calcium 9.4 mg/dl (8.4-10.2); Carbon Dioxide 30 mmol/L (22.0-30.0); Chloride 97 mmol/L (98-107); Creatinine Clearance Estimated 48 mL/min (50-200); Estimated Glomerular Filt Rate 95 ml/min (>60); GFR (African American) 114 ML/MIN (>60); Globulin 3.3 g/dL (1.3-3.2); Glucose 122 mg/dl (74-100); Sodium 131 mmol/L (136-145)
[2023-03-12 13:58] LABS: Creatine Kinase 1243 U/L (30-135)
--- NOTE | 2023-03-12 14:07 | PC.NURSE ---
EKG delayed d/t patient going to scan
[2023-03-12 14:09] LABS: Troponin I 0.02 ng/ml (0.00-0.034)
[2023-03-12 14:14] LABS: Basophils % 0.2 % (0.1-2.0); Eosinophils % 0.1 % (0.1-12.0); Hemoglobin 14.2 g/dL (12.2-16.2); Lymphocytes # 1.7 K/mm3 (0.7-4.5); Lymphocytes % 14.9 % (10-50); Mean Corpuscular HGB Conc 32.2 g/dL (31.8-35.4); Mean Corpuscular Hemoglobin 30.3 pg (27.0-31.2); Mean Corpuscular Volume 94.1 fl (81-99); Mean Platelet Volume 8.1 fl (7.4-10.4); Monocytes # 0.7 K/mm3 (0.1-1.0); Monocytes % 6.3 % (1.7-9.3); Neutrophils # 9.1 K/mm3 (1.8-7.8); Neutrophils % 78.4 % (37.0-80.0); Platelet Count 239 K/mm3 (142-424); Red Blood Count 4.68 M/mm3 (4.20-5.40); Red Cell Distribution Width 13.8 % (11.5-17.5); White Blood Count 11.6 K/mm3 (4.8-10.8)
--- NOTE | 2023-03-12 14:30 | PC.NURSE ---
pt transferred to radiology
--- NOTE | 2023-03-12 15:05 | PC.NURSE ---
pt arrived back to room
--- NOTE | 2023-03-12 15:18 | ECG_ITS ---
APPROVED REPORT Exam: Resting ECG HR:66 bpm ECG Measurements Heart Rate 66 AXES [place] 162 P 55 QRSd 93 QRS 8 QT 406 T 58 QTc 419 Conclusion SINUS RHYTHM NORMAL ECG UNCONFIRMED REPORT Electronically signed by : Red Thibodeaux MD 03/13/2023 09:33:07
[2023-03-12 15:35] LABS: Coronavirus 19, PCR Not Detected (NotDetected); Influenza A, PCR Not Detected (NotDetected); Influenza B, PCR Not Detected (NotDetected)
--- NOTE | 2023-03-12 16:51 | EXP.HP ---
History of Present Illness *Admission Date: 03/12/23 *Reason for visit:: rhabdo *History of present illness: This is an 88-year-old female with history of CAD, hypertension, hyperlipidemia presenting with fall.? Patient is confused on arrival, per daughter.? History largely obtained with patient, EMS, daughter.? Patient telling 2 stories, 1 she was doing laundry, 2 she was getting out of bed and fell.? Was down for unknown period of time.? Patient called EMS and was brought to the ER.? Patient complaining of left shoulder pain that is severe, does not radiate, not associated with neurologic deficits.? Patient denying headache, vision changes, numbness/weakness/tingling anywhere, nausea or vomiting, abdominal pain, but has right-sided chest wall pain, neck pain, midline spinal tenderness in thoracic and lumbar spines.? Denies bowel or bladder dysfunction, saddle anesthesia, or any other concerns. Patient is mildly encephalopathic at this time. Sounds like her story has been changing between what she told family members and what she is telling me. We will monitor her overnight. [facility] Disclaimer: The information contained in this section may have been updated after the patient was seen, as this information can be updated by other users. Medical History (Updated 03/12/23 @ 17:06 by Joel Sanders MD) Hypertension Myocardial infarction Surgical History (Updated 01/06/23 @ 10:43 by Cassi Bowser LPN) H/O heart artery stent History of appendectomy History of hysterectomy History of knee replacement History of surgery on arm Family History (Updated 01/06/23 @ 10:44 by Cassi Bowser LPN) Sister Cancer Father Cancer Mother Stroke Social History (Updated 01/06/23 @ 10:45 by Cassi Bowser LPN) Smoking Status: Never smoker years smoked: 2 how long ago did patient quit smoking: >20 years alcohol intake: current substance use type: denies use current occupational status: retired Travel in the last 8 weeks: None household members: none housing: house caffeine: Yes Review of Systems Review of Systems Review of systems:: pertinent systems reviewed and negative unless documented below Meds Home Medications and Allergies Home Medications Medication Instructions Recorded Confirmed Type amlodipine 5 mg tablet 5 mg PO DAILY daily 12/23/21 01/06/23 History cholecalciferol (vitamin D3) 25 25 mcg PO DAILY 01/06/23 01/06/23 History mcg (1,000 unit) capsule escitalopram oxalate 5 mg tablet 5 mg PO DAILY #30 tabs 01/06/23 01/06/23 Rx (Lexapro) ezetimibe 10 mg tablet 10 mg PO DAILY 01/06/23 01/06/23 History isosorbide mononitrate 30 mg 30 mg PO BID 01/06/23 01/06/23 History tablet,extended release 24 hr sotalol 80 mg tablet (Sotalol AF) 80 mg PO BID 01/06/23 01/06/23 History New Prescriptions to Start Prescriptions: Allergies Allergy/AdvReac Type Severity Reaction Status Date / Time AMNIOPHYLLINE Allergy Severe HIGH HEART Uncoded 11/17/17 14:54 RATE Codeine Allergy Unknown itching Uncoded 01/06/23 10:34 Meperidine Allergy Unknown Uncoded 11/17/17 14:54 Exam Data for Last 24 hours Vital signs and Labs for Last 24 Hours: Temp Pulse Resp BP Pulse Ox 98.1 F 66 18 174/79 H 95 03/12/23 13:11 03/12/23 15:31 03/12/23 13:11 03/12/23 15:31 03/12/23 15:31 Laboratory Results - last 24 hr 03/12/23 13:28: WBC 11.6 H, RBC 4.68, Hgb 14.2, Hct 44.0, MCV 94.1, MCH 30.3, MCHC 32.2, RDW 13.8, Plt Count 239, MPV 8.1, Neut % (Auto) 78.4, Lymph % (Auto) 14.9, Campbell % (Auto) 6.3, Eos % (Auto) 0.1, Baso % (Auto) 0.2, Neut # (Auto) 9.1 H, Lymph # (Auto) 1.7, Campbell # (Auto) 0.7, Eos # (Auto) 0.0, Baso # (Auto) 0.0 03/12/23 13:28: Sodium 131 L, Potassium 4.0, Chloride 97 L, Carbon Dioxide 30, Anion Gap 8.0, BUN 17, Creatinine 0.60, Estimated Creat Clear 48, Estimated GFR 95, Est GFR ( Amer) 114, Glucose 122 H, Calcium 9.4, Total Bilirubin 0.8, AST 76 H, ALT 32
[2023-03-12 16:53] LABS: Microscopic, Urine URINE MICROSCOPIC (MICROSCOPIC)
[2023-03-12 16:54] LABS: Appearance,Urine SL CLOUDY (Clear); Bilirubin,Urine Negative (Negative); Blood, Urine 2+ (Negative); Color,Urine YELLOW (Yellow); Glucose,Urine (UA) Negative (Negative); Ketones,Urine TRACE (Negative); Leukocyte Esterase,Urine Negative (Negative); Nitrate,Urine Negative (Negative); PH,Urine 6.5 (5.0-8.5); Protein,Urine TRACE (Negative); Urobilinogen,Urine 0.2 EU/dl (0.2)
--- NOTE | 2023-03-12 17:09 | PC.NURSE ---
called house for admission awaiting for bed assignment
[2023-03-12 17:19] LABS: Bacteria,Urine 4+ /lpf; WBC,Urine Occasional #/hpf (0-3)
--- NOTE | 2023-03-12 17:29 | PC.NURSE ---
updated pt and family that report was being called to the nurse on medsurg and it shouldn't be much longer before they are moved to her room on second floor
[2023-03-12 17:53] LABS: Troponin I 0.02 ng/ml (0.00-0.034)
[2023-03-12 20:15] LABS: Troponin I 0.02 ng/ml (0.00-0.034)
[2023-03-13] VITALS (8 sets, daily range): BP systolic 121–156; BP diastolic 57–74; PULSE 59–92; RESP 18; TEMP 36.7–37.3; O2SAT 92–97; BMI 23.0
--- NOTE | 2023-03-13 04:50 | PC.NURSE ---
iron Ruiz aprn called for pt complaints pain, states pain is back at a 7, pt complains mainly pain in left arm shoulder and neck down back. note order entered for morphine per provider.
--- NOTE | 2023-03-13 05:13 | PC.NURSE ---
Addendum entered by Philomena Lang RN 03/13/23 05:37: telemetry reveals NSR Original Note: pt alert and oriented this shift, pt complained of pain this shift, meds given as prescribed, no acute distress, vss, skin noted with bruising to right hip area, and scattered bruising noted to left arm. aughter remains at bedside, purewick in place.
--- NOTE | 2023-03-13 05:37 | PC.NURSE ---
pt moaning in pain, complains of neck and back pain and left elbow and shoulder, pt crying in pain, iron castellano aprn to inform and states she will be up to assess pt soon. no new orders given at this time.
[2023-03-13 07:28] LABS: Basophils % 0.3 % (0.1-2.0); Eosinophils # 0.1 K/mm3 (0.0-0.4); Eosinophils % 1.3 % (0.1-12.0); Hematocrit 40.1 % (37.0-47.0); Hemoglobin 12.9 g/dL (12.2-16.2); Lymphocytes % 21.1 % (10-50); Mean Corpuscular HGB Conc 32.2 g/dL (31.8-35.4); Mean Corpuscular Hemoglobin 30.4 pg (27.0-31.2); Mean Corpuscular Volume 94.4 fl (81-99); Monocytes # 0.5 K/mm3 (0.1-1.0); Monocytes % 5.7 % (1.7-9.3); Neutrophils # 6.8 K/mm3 (1.8-7.8); Neutrophils % 71.7 % (37.0-80.0); Platelet Count 201 K/mm3 (142-424); Red Blood Count 4.25 M/mm3 (4.20-5.40); Red Cell Distribution Width 13.9 % (11.5-17.5); White Blood Count 9.5 K/mm3 (4.8-10.8)
[2023-03-13 07:31] LABS: Chloride 98 mmol/L (98-107); Potassium 3.6 mmoL/L (3.5-5.1); Sodium 133 mmol/L (136-145)
[2023-03-13 07:34] LABS: Alanine Aminotransferase 26 U/L (12-78); Albumin Level 3.5 g/dl (3.5-5.0); Albumin/Globulin Ratio 1.3 (1.1-1.8); Alkaline Phosphatase 55 U/L (38-126); Anion Gap 8.6 mEq/L (5-15); Aspartate Amino Transferase 55 U/L (14-36); Bilirubin,Total 0.7 mg/dl (0.2-1.3); Blood Urea Nitrogen 11 mg/dl (7-17); Calcium 8.5 mg/dl (8.4-10.2); Carbon Dioxide 30 mmol/L (22.0-30.0); Creatine Kinase 713 U/L (30-135); Creatinine Clearance Estimated 41 mL/min (50-200); Estimated Glomerular Filt Rate 117 ml/min (>60); GFR (African American) 141 ML/MIN (>60); Globulin 2.6 g/dL (1.3-3.2); Glucose 103 mg/dl (74-100); Phosphorous 2.5 mg/dl (2.5-4.5); Total Protein,Serum 6.1 g/dl (6.3-8.2)
[2023-03-13 07:35] LABS: Magnesium 1.9 mg/dl (1.6-2.3)
--- NOTE | 2023-03-13 08:37 | XR_ITS ---
FINAL REPORT CLINICAL HISTORY: fall FINDINGS: LEFT WRIST 3 views of the left wrist were obtained. There is no acute fracture or dislocation. There are moderate and severe degenerative changes which are worse at the 1st CMC joint. There are soft tissue calcifications. IMPRESSION: Moderate and severe degenerative changes with no acute bony abnormality. Reviewed, Interpreted and Dictated by Jaspreet Nelson III, MD Transcribed by Marycarmen Gordon Authenticated and [facility]
--- NOTE | 2023-03-13 08:37 | XR_ITS ---
FINAL REPORT CLINICAL HISTORY: fall FINDINGS: LEFT HAND Two views of the left hand were obtained. There is no acute fracture or dislocation. There are moderate and severe degenerative changes. There is no soft tissue abnormality. IMPRESSION: Moderate and severe degenerative changes with no acute bony abnormality. Reviewed, Interpreted and Dictated by Jaspreet Nelson III, MD Transcribed by Marycarmen Gordon Authenticated and [facility]
[2023-03-13 09:20] LABS: Thyroid Stimulating Hormone 3.42 uIU/mL (0.465-4.68)
--- NOTE | 2023-03-13 10:25 | HMH.PTEV ---
Physical Therapy Evaluation Rehab PT IP Evaluation Start: 03/12/23 16:49 Freq: ONCE Status: Active Protocol: Document 03/13/23 10:06 BALTAZAR (Rec: 03/13/23 10:25 ADE [id number]) Subjective/History History History Pt is a pleasant 88 year old female admitted to [facility] after sustaining a fall from bed at home. Pt called EMS after the fall and was brought to the ER . Pt has a PMH of CAD, hypertension and hyperlipidemia. Pt underwent imaging of Cervical spine, head CT, L humerus x-ray, L shoulder x-ray, pelvis CT, lumbar spine CT, thoracic spine CT, abdomen/pelvis CT and elbow x-ray which all were negative for acute abnormality. Subjective Subjective Pt presents supine in bed with family at side, pleasant and agreeable to PT initial evaluation. Pt [place] and reads lips for communication. Pt alert and oriented x3. Pt reports she is having a lot of pain everywhere . Pt states that she lives at home alone in a multi-level home (uses 1st floor primarily ) and ambulates with a cane at baseline. Pt states that she drives and performs all B/IADL 's. Following PT evaluation, pt left supine in bed with call light and all needs within reach. Rehab PT IP Eval Objective Appearance Patient Behavior Appropriate Patient Orientation Person,Place,Name,Birthday, Situation Difficulty following instructions none Speech Pattern Clear,Appropriate Ambulation Patient Able to Ambulate No Balance Ability to Arise Unable Sitting Balance Leans or slides in chair Dynamic Sitting Balance Ability Poor Transfers Bed Transfer Ability Moderate x 1 (50% assist) Pain Back Pain Intensity 9 Right Shoulder Pain Intensity 7 Left Shoulder Pain Intensity
--- NOTE | 2023-03-13 10:36 | PC.NURSE ---
courtesy tech note; rounded on pt, brought ice water at pt request, pt denied need to use restroom and need to reposition. call light within reach, no further requests at this time. Edgardo Robertson, SRNA
--- NOTE | 2023-03-13 10:55 | HMH.PHAINT1 ---
Pharmacy Intervention Comments: MEDICATION RECONCILIATION COMPLETED ON PATIENT USING EXTERNAL FILL HISTORY FROM PHARMACY. -RAFA MARTINS, KIMBERLYD
--- NOTE | 2023-03-13 12:03 | EXP.ACUTE.PN ---
Subjective *Date: 03/13/23 *Time: 12:03 Interval history: Doing better today. Having elbow pain and left wrist pain. Medical Exam Vital signs and Labs for Last 24 Hours: Vital Signs Temp Pulse Pulse Resp BP BP Pulse Ox 03/13/23 11:35 98.3 F 59 L 18 152/64 H 94 L 03/13/23 08:00 98.2 F 61 18 144/57 H 92 L 03/13/23 04:00 70 03/13/23 04:00 98.0 F 68 18 156/74 H 97 03/13/23 00:00 60 03/13/23 00:00 98.7 F 92 H 18 151/60 H 96 03/12/23 20:00 70 03/12/23 20:00 92 L 03/12/23 20:00 100.2 F H 73 18 149/54 H 94 L 03/12/23 18:00 100.1 F H 69 18 158/72 H 92 L 03/12/23 17:01 167/77 H 92 L 03/12/23 17:30 98.3 F 78 17 166/77 H 03/12/23 16:31 69 156/78 H 93 L 03/12/23 16:00 68 187/81 H 94 L 03/12/23 15:31 66 174/79 H 95 03/12/23 15:12 68 180/84 H 94 L 03/12/23 13:31 69 202/86 H 92 L 03/12/23 13:26 69 213/104 H 92 L 03/12/23 13:11 98.1 F 70 18 202/86 H 94 L Intake and Output 03/12/23 03/13/23 03/13/23 23:59 07:59 15:59 Intake Total 120 / 120 1651 / 1771 120 / 1771 Output Total 200 / 200 1200 / 1200 Balance -80 / -80 451 / 571 120 / 571 Intake: Intake, Oral Amount 120 / 120 120 / 120 Intake, Total IV Amount 1651 / 1651 Ringers Solution,Lactated 500 1651 / 1651 ml @ 500 mls/hr IV .Q1H [facility] Rx# :[id number] Output: Output, Urine Amount 200 / 200 1200 / 1200 Other: Number of Unmeasured Voids 0 0 Weight 61.887 kg 65.034 kg Patient Weight 03/13/23 23:59 Weight 65.034 kg Laboratory Results - last 24 hr 03/12/23 13:20: Urine Color Yellow, Urine Appearance Sl cloudy, Urine pH 6.5, Ur Specific [place] 1.020, Urine Protein Trace, Urine Glucose (UA) Negative, Urine Ketones Trace, Urine Blood 2+, Urine Nitrate Negative, Urine Bilirubin Negative, Urine Urobilinogen 0.2, Ur Leukocyte Esterase Negative, Urine RBC 3-5, Urine WBC Occasional, Urine Bacteria 4+ 03/12/23 13:28: WBC 11.6 H, RBC 4.68, Hgb 14.2, Hct 44.0, MCV 94.1, MCH 30.3, MCHC 32.2, RDW 13.8, Plt Count 239, MPV 8.1, Neut % (Auto) 78.4, Lymph % (Auto) 14.9, [place] % (Auto) 6.3, Eos % (Auto) 0.1, Baso % (Auto) 0.2, Neut # (Auto) 9.1 H, Lymph # (Auto) 1.7, [place] # (Auto) 0.7, Eos # (Auto) 0.0, Baso # (Auto) 0.0 03/12/23 13:28: Sodium 131 L, Potassium 4.0, Chloride 97 L, Carbon Dioxide 30, Anion Gap 8.0, BUN 17, Creatinine 0.60, Estimated Creat Clear 48, Estimated GFR 95, Est GFR ( Amer) 114, Glucose 122 H, Calcium 9.4, Total Bilirubin 0.8, AST 76 H, ALT 32, Alkaline Phosphatase 74, Total Creatine Kinase 1243 H*, Troponin I 0.02, Total Protein 8.0, Albumin 4.7, Globulin 3.3 H, Albumin/Globulin Ratio 1.4 03/12/23 15:30: SARS-CoV-2 (PCR) Not detected, Influenza A Untype (PCR) Not detected, Influenza Type B (PCR) Not detected 03/12/23 16:50: Troponin I 0.02 03/12/23 19:45: Troponin I 0.02 03/13/23 06:35: WBC 9.5, RBC 4.25, Hgb 12.9, Hct 40.1, MCV 94.4, MCH 30.4, MCHC 32.2, RDW 13.9, Plt Count 201, MPV 8.0, Neut % (Auto) 71.7, Lymph % (Auto) 21.1, [place] % (Auto) 5.7, Eos % (Auto) 1.3, Baso % (Auto) 0.3, Neut # (Auto) 6.8, Lymph # (Auto) 2.0, [place] # (Auto) 0.5, Eos # (Auto) 0.1, Baso # (Auto) 0.0 03/13/23 06:35: Sodium 133 L, Potassium 3.6, Chloride 98, Carbon Dioxide 30, Anion Gap 8.6, BUN 11 D, Creatinine 0.50 L, Estimated Creat Clear 41, Estimated GFR 117, Est GFR ( Amer) 141 D, Glucose 103 H, Calcium 8.5, Phosphorus 2.5, Magnesium 1.9, Total Bilirubin 0.7, AST 55 H D, ALT 26, Alkaline Phosphatase 55, Total Protein 6.1 L, Albumin 3.5 D, Globulin 2.6, Albumin/Globulin Ratio 1.3 03/13/23 06:35: Total Creatine Kinase 713 H* D 03/13/23 06:35: TSH 3.42 I & O for Labs for Last 24 Hours: Intake & Output 03/10/23 03/11/23 03/12/23 03/13/23 23:59 23:59 23:59 23:59 Intake Total 120 / 120 1771 / 1771 Output Total 200 / 200 1200 / 1200 Balance -80 / -80 571 / 571 Weight 61.887 kg 65.034 kg Mi
--- NOTE | 2023-03-13 13:45 | CARE MANAGER ---
Addendum entered by Rosario Morataya RN 03/16/23 14:48: Patient accepted at the [facility] and will be discharged today. Addendum entered by Rosario Morataya RN 03/16/23 10:47: Trina will be here at 1130 to see patient and review for the [facility]. Addendum entered by Rosario Morataya RN 03/16/23 08:08: Patient and family decided they would not like a facility in [place] after [facility] went to the facility. I spoke with [facility] on 03/14/23 and she requested we wait to hear back from [facility] or try the [facility] in [place]. We discussed how if these facilities did not have bed availability or were unable to offer a bed then she would likely be discharged home with home health as she is medically stable and ready for discharge per hospitalist. I reached out to [facility] this morning and left message regarding possible bed today and also faxed information to the [facility]. Addendum entered by Rosario Morataya RN 03/13/23 14:54: [facility] does not have a bed available. Patient and family agree to [facility] if bed available as well. Sent information there. Original Note: Spoke with patient and family. Therapy suggests rehab and she is reluctant, but agreeable to go. They wish for me to send information to [facility], and [facility]. [facility] does not have an available bed. Information faxed to the other 2 facilities. Awaiting response.
--- NOTE | 2023-03-13 15:48 | PC.NURSE ---
courtesy tech note; 0300 rounded on pt, pt denied need for drink, need to void, and need to reposition in bed. call light within reach, no further requests at this time. Edgardo Robertson, RASHAAD
--- NOTE | 2023-03-13 16:24 | PC.NURSE ---
A&OX4. LUNG SOUNDS DIMINISHED THROUGHOUT. NO COUGH NOTED. RESPIRATIONS REGULAR AND UNLABORED. [employer] E[employer]. +2 PULSES NOTED THROUGHOUT. HEART RATE REGULAR. NO EDEMA NOTED. ABDOMEN SOFT AND NONTENDER. ACTIVE BOWEL SOUNDS HEARD THROUGHOUT. PURWICK IN PLACE WITH CLEAR YELLOW URINE NOTED IN CANISTER. NO BM THUS FAR. FAMILY HAS REMAINED AT BEDSIDE THROUGHOUT SHIFT. AWAITING PLACEMENT TO REHAB FACILITY. PT HAS COMPLAINED OF PAIN IN HER BACK AND WRIS 3 TIMES THIS SHIFT. SHE HAS RECEIVED TYLENOL, PERCOCET, AND MORPHINE ONE EACH THIS SHIFT AND ON REASSESSMENT EACH TIME PAIN WAS GONE. SKIN CDI. LR INFUSING AT 125 ML/R. NO QUESTIONS OR CONCERNS VOICED. CALL LIGHT WITHIN REACH. BED IN LOWEST POSITION. WILL CONTINUE TO MONITOR.
[2023-03-14] VITALS (9 sets, daily range): BP systolic 111–171; BP diastolic 50–89; PULSE 50–70; RESP 16–20; TEMP 36.6–37.2; O2SAT 94–97; BMI 24.0
--- NOTE | 2023-03-14 08:12 | EXP.ACUTE.PN ---
Subjective *Date: 03/14/23 *Time: 08:12 Interval history: Pain in arm overnight. received with pain meds. Severe pain today in arm. No other issues. Medical Exam Vital signs and Labs for Last 24 Hours: Vital Signs Temp Pulse Pulse Resp BP Pulse Ox 03/14/23 08:00 99.0 F 58 L 20 145/76 H 95 03/14/23 04:00 51 L 03/14/23 04:00 98.1 F 56 L 18 159/89 H 95 03/14/23 00:00 60 03/13/23 20:00 60 03/14/23 00:00 98.8 F 56 L 18 113/53 L 97 03/13/23 20:00 99.1 F 62 18 121/58 L 94 L 03/13/23 16:00 60 03/13/23 08:40 94 L 03/13/23 12:00 61 03/13/23 11:35 98.3 F 59 L 18 152/64 H 94 L Intake and Output 03/13/23 03/14/23 03/14/23 23:59 07:59 15:59 Intake Total 1899 / 3790 Output Total 250 / 2250 900 / 900 Balance 1649 / 1540 -900 / -900 Intake: Intake, Oral Amount 240 / 480 Intake, Total IV Amount 1659 / 3310 Lactated Ringers 1000ML 1,000 1659 / 1659 ml @ 125 mls/hr IV .Q8H REPLACED BY [facility] Rx# :[id number] Output: Output, Urine Amount 250 / 2250 900 / 900 Other: Number of Voids 0 Number of Unmeasured Voids 1 0 Weight 67.721 kg Patient Weight 03/14/23 23:59 Weight 67.721 kg Laboratory Results - last 24 hr 03/12/23 13:20: Urine Color Yellow, Urine Appearance Sl cloudy, Urine pH 6.5, Ur Specific [place] 1.020, Urine Protein Trace, Urine Glucose (UA) Negative, Urine Ketones Trace, Urine Blood 2+, Urine Nitrate Negative, Urine Bilirubin Negative, Urine Urobilinogen 0.2, Ur Leukocyte Esterase Negative, Urine RBC 3-5, Urine WBC Occasional, Urine Bacteria 4+ 03/13/23 06:35: TSH 3.42 I & O for Labs for Last 24 Hours: Intake & Output 03/11/23 03/12/23 03/13/23 04/15/23 23:59 23:59 23:59 23:59 Intake Total 120 / 120 3790 / 3790 Output Total 200 / 200 2250 / 2250 900 / 900 Balance -80 / -80 1540 / 1540 -900 / -900 Weight 61.887 kg 65.034 kg 67.721 kg Microbiology Reports for the Last 24 Hours: Microbiology 03/12/23 13:20 Urine,Catheterized Urine Culture - Final Escherichia coli Constitutional: Present moderate distress, thin and chronically ill appearing Head: Present atraumatic Respiratory: Present CTA bilaterally; Absent accessory muscle use Cardiac: Present Reg Rate and Rhythm and S1/S2 GI: Present soft; Absent tenderness Rectal (female): Present deferred (female): Present deferred Extremities: Present normal inspection Skin: Present intact Assessment and Plan *Assessment and plan (1) HTN (hypertension): Status: Acute Category: Medical Code(s): I10 - Essential (primary) hypertension (2) Fall: Status: Acute Category: Medical Code(s): W19.XXXA - Unspecified fall, initial encounter (3) Syncope: Status: Acute Category: Medical Code(s): R55 - Syncope and collapse Plan 88yo F admitted for rhabdo following fall out of bed. Patient reportedly having of arrhythmias that are currently under evaluation by another provider.? Uncertain if this is syncopal event or mechanical, I am suspecting syncopal given her current encephalopathy..? Encephalopathy is improved.? Patient is having pain in her arm from the fall, will increase pain management. Awaiting placement, ready for discharge. Rhabdo - resolved syncope - blood cx no growth to date - PT OT orthostatics - echo normal - tele normal - tsh normal arm pain - PT for brace, pt for? eval of falls toradol prn percocet Asymptomatic bacteriuria - no symptoms, will not give abx HTN - home rx - continue stoalol imdur anxienty depression - continue home rx incdental pulm nodule - follow up outpatient
[2023-03-14 08:46] LABS: Chloride 99 mmol/L (98-107); Sodium 134 mmol/L (136-145)
[2023-03-14 08:49] LABS: Alanine Aminotransferase 24 U/L (12-78); Albumin/Globulin Ratio 1.2 (1.1-1.8); Alkaline Phosphatase 52 U/L (38-126); Aspartate Amino Transferase 41 U/L (14-36); Bilirubin,Total 0.4 mg/dl (0.2-1.3); Blood Urea Nitrogen 10 mg/dl (7-17); Carbon Dioxide 31 mmol/L (22.0-30.0); Creatinine Clearance Estimated 42 mL/min (50-200); Estimated Glomerular Filt Rate 117 ml/min (>60); GFR (African American) 141 ML/MIN (>60); Globulin 2.5 g/dL (1.3-3.2); Total Protein,Serum 5.5 g/dl (6.3-8.2)
[2023-03-14 08:50] LABS: Calcium 8.6 mg/dl (8.4-10.2); Glucose 128 mg/dl (74-100)
--- NOTE | 2023-03-14 17:01 | PC.NURSE ---
PT IS RESTING IN BED. ALERT AND ORIENTED X4. EATING AND DRINKING WELL. LUNG SOUNDS CLEAR. ABDOMEN SOFT/NON TENDER WITH ACTIVE BOWEL SOUNDS. PT PARTICIPATED WITH PHYSICAL THERAPY. TOLERATED SITTING UP IN THE CHAIR FOR A FEW HOURS THIS AFTERNOON. PT'S FAMILY STATED THEY DID NOT WANT PT TO GO TO [facility] OR [facility]. HOSPITALIST AND CARE MANAGEMENT NOTIFIED. PT WILL BE STAYING IN HOSPITAL TILL THURSDAY.
[2023-03-15] VITALS (9 sets, daily range): BP systolic 92–192; BP diastolic 51–90; PULSE 50–62; RESP 16–18; TEMP 36.6–36.8; O2SAT 94–97; BMI 24.2
--- NOTE | 2023-03-15 00:35 | PC.NURSE ---
notified ARMIDA Desir of the difference in BP taken in opposite arms, Left arm manual BP 92/64, right arm manual BP 178/84, no new orders at this time
--- NOTE | 2023-03-15 07:29 | EXP.ACUTE.PN ---
Subjective *Date: 03/15/23 *Time: 07:52 Interval history: No issues, atill having arm pain but better controlled Medical Exam Vital signs and Labs for Last 24 Hours: Vital Signs Temp Pulse Pulse Resp BP BP Pulse Ox 03/15/23 07:23 59 L 191/76 H 03/15/23 04:00 98.2 F 53 L 17 192/85 H 95 03/15/23 04:00 50 L 03/15/23 00:00 50 L 03/15/23 00:00 97.8 F 57 L 16 92/64 L 178/84 H 96 03/14/23 20:00 60 03/14/23 19:57 98.2 F 63 16 171/80 H 94 L 03/14/23 16:00 56 L 03/14/23 15:26 98.9 F 55 L 16 111/50 L 95 03/14/23 12:00 50 L 03/14/23 11:47 97.9 F 51 L 17 128/60 96 03/14/23 08:00 70 03/14/23 08:00 99.0 F 58 L 20 145/76 H 95 Intake and Output 03/14/23 03/14/23 03/15/23 15:59 23:59 07:59 Intake Total 480 / 2084 240 / 2084 1364 / 1364 Output Total 500 / 2500 200 / 2500 1600 / 1600 Balance -20 / -416 40 / -416 -236 / -236 Intake: Intake, Oral Amount 480 / 720 240 / 720 Intake, Total IV Amount 1364 / 1364 Lactated Ringers 1000ML 1,000 1364 / 1364 ml @ 125 mls/hr IV .Q8H [facility] Rx# :[id number] Output: Output, Urine Amount 500 / 2500 200 / 2500 1600 / 1600 Other: Number of Unmeasured Voids 1 1 Weight 68.447 kg Patient Weight 03/15/23 23:59 Weight 68.447 kg Laboratory Results - last 24 hr 03/14/23 07:52: Sodium 134 L, Potassium 4.0, Chloride 99, Carbon Dioxide 31 H, Anion Gap 8.0, BUN 10, Creatinine 0.50 L, Estimated Creat Clear 42, Estimated GFR 117, Est GFR ( Amer) 141, Glucose 128 H, Calcium 8.6, Total Bilirubin 0.4, AST 41 H D, ALT 24, Alkaline Phosphatase 52, Total Protein 5.5 L, Albumin 3.0 L D, Globulin 2.5, Albumin/Globulin Ratio 1.2 I & O for Labs for Last 24 Hours: Intake & Output 03/12/23 03/13/23 03/14/23 03/15/23 23:59 23:59 23:59 23:59 Intake Total 120 / 120 3790 / 3790 720 / 2084 1364 / 1364 Output Total 200 / 200 2250 / 2250 1600 / 2500 1600 / 1600 Balance -80 / -80 1540 / 1540 -880 / -416 -236 / -236 Weight 61.887 kg 65.034 kg 67.721 kg 68.447 kg Microbiology Reports for the Last 24 Hours: Microbiology 03/12/23 17:15 Blood Blood Culture - Preliminary NO GROWTH AFTER 48 HOURS 03/12/23 16:50 Blood Blood Culture - Preliminary NO GROWTH AFTER 48 HOURS 03/12/23 13:20 Urine,Catheterized Urine Culture - Final Escherichia coli Constitutional: Present moderate distress, thin and chronically ill appearing Head: Present atraumatic Respiratory: Present CTA bilaterally; Absent accessory muscle use Cardiac: Present Reg Rate and Rhythm and S1/S2 GI: Present soft; Absent tenderness Rectal (female): Present deferred (female): Present deferred Extremities: Present normal inspection Skin: Present intact Assessment and Plan *Assessment and plan (1) Rhabdomyolysis: Status: Acute Category: Medical Code(s): M62.82 - Rhabdomyolysis (2) Syncope: Status: Acute Category: Medical Code(s): R55 - Syncope and collapse (3) Fall: Status: Acute Category: Medical Code(s): W19.XXXA - Unspecified fall, initial encounter (4) HTN (hypertension): Status: Acute Category: Medical Code(s): I10 - Essential (primary) hypertension Plan 88yo F admitted for rhabdo following fall out of bed. Patient reportedly having of arrhythmias that are currently under evaluation by another provider.? Uncertain if this is syncopal event or mechanical, I am suspecting syncopal given her current encephalopathy..? Encephalopathy is improved.? Patient is having pain in her arm from the fall, will increase pain management. Awaiting placement, ready for discharge. Rhabdo - resolved syncope - blood cx no growth to date - PT OT - orthostatics normal - echo normal - tele normal - tsh normal arm pain - PT for brace, pt for
[2023-03-15 08:19] LABS: Chloride 101 mmol/L (98-107); Sodium 135 mmol/L (136-145)
[2023-03-15 08:22] LABS: Alanine Aminotransferase 25 U/L (12-78); Alkaline Phosphatase 59 U/L (38-126); Aspartate Amino Transferase 39 U/L (14-36); Bilirubin,Total 0.5 mg/dl (0.2-1.3); Blood Urea Nitrogen 9 mg/dl (7-17); Creatinine Clearance Estimated 43 mL/min (50-200); Estimated Glomerular Filt Rate 117 ml/min (>60); GFR (African American) 141 ML/MIN (>60)
[2023-03-15 08:23] LABS: Albumin Level 3.4 g/dl (3.5-5.0); Albumin/Globulin Ratio 1.2 (1.1-1.8); Calcium 8.8 mg/dl (8.4-10.2); Carbon Dioxide 29 mmol/L (22.0-30.0); Globulin 2.8 g/dL (1.3-3.2); Glucose 104 mg/dl (74-100); Total Protein,Serum 6.2 g/dl (6.3-8.2)
--- NOTE | 2023-03-15 17:56 | PC.NURSE ---
Addendum entered by Dayanna Wise RN 03/15/23 17:57: granddaughter stated she she doesn't want pt to go to snf in [place] and pt states she would rather go to the closest facility to home. sling place on pt. warm blanket applied to shoulder, with relief. cb within reach, son at bedside. Original Note: pt has c/o pain to rt shoulder t/o shift. eddie stated
[2023-03-16] VITALS: PULSE 100
[2023-03-16 04:00] VITALS: BP 183/71; PULSE 59; PULSE 60; RESP 16; TEMP 36.6; O2SAT 100; BMI 23.9
--- NOTE | 2023-03-16 06:02 | PC.NURSE ---
Pt is aox4 with son present in the room, she is up with assistance times one, Left arm in a sling from where she fell a few days ago at home. She has gotten pain pills twice on my shift, takes pills whole with no issues.
[2023-03-16 07:04] LABS: Basophils % 0.3 % (0.1-2.0); Eosinophils # 0.3 K/mm3 (0.0-0.4); Hematocrit 37.4 % (37.0-47.0); Hemoglobin 11.8 g/dL (12.2-16.2); Lymphocytes % 25.9 % (10-50); Mean Corpuscular HGB Conc 31.7 g/dL (31.8-35.4); Mean Corpuscular Hemoglobin 30.3 pg (27.0-31.2); Mean Corpuscular Volume 95.5 fl (81-99); Mean Platelet Volume 9.5 fl (7.4-10.4); Monocytes # 0.6 K/mm3 (0.1-1.0); Monocytes % 7.5 % (1.7-9.3); Neutrophils # 4.9 K/mm3 (1.8-7.8); Neutrophils % 62.2 % (37.0-80.0); Platelet Count 230 K/mm3 (142-424); Red Blood Count 3.91 M/mm3 (4.20-5.40); Red Cell Distribution Width 13.8 % (11.5-17.5); White Blood Count 7.9 K/mm3 (4.8-10.8)
[2023-03-16 07:10] LABS: Chloride 102 mmol/L (98-107); Sodium 134 mmol/L (136-145)
[2023-03-16 07:11] LABS: Potassium 4.4 mmoL/L (3.5-5.1)
[2023-03-16 07:13] LABS: Anion Gap 8.4 mEq/L (5-15); Blood Urea Nitrogen 15 mg/dl (7-17); Calcium 8.6 mg/dl (8.4-10.2); Carbon Dioxide 28 mmol/L (22.0-30.0); Creatinine Clearance Estimated 42 mL/min (50-200); Estimated Glomerular Filt Rate 117 ml/min (>60); GFR (African American) 141 ML/MIN (>60); Glucose 102 mg/dl (74-100)
[2023-03-16 07:36] VITALS: BP 160/72; PULSE 57; RESP 18; TEMP 37.1; O2SAT 97
[2023-03-16 08:00] VITALS: PULSE 61
--- NOTE | 2023-03-16 10:00 | HMH.OTEV ---
OT Inpatient Evaluation Rehab OT IP Evaluation Start: 03/15/23 18:44 Freq: ONCE Status: Active Protocol: Document 03/16/23 09:[facility] (Rec: 03/16/23 09:[address] [facility] [id number]) Rehab OT IP Assessment Subjective History Pt oriented x 3 on arrival. Pt was admitted on 03/12/23 due to rhabdo and a fall at home. Pt reports prior to being in the hospital, she lived at home alone. Pt claims she was independent with all ADLs and IADLs. Pt used a cane during ambulation. Pt was still driving. Pt has a past medical history of: Hypertension Myocardial infarction Subjective I am going to need help. Objective Patient Orientation Person,Place,Birthday Upper Extremity Gross ROM Mod Limitation 50% Shoulder ROM Limitations Pain Elbow ROM Limitations Pain Wrist Limitations of Range of Motion Pain Bed Mobility bed mobility-scooting,bed mobility - supine/sit,bed mobility - rolling Assist Level Contact Guard/Hand Hold Transfer Training Sit/Stand Transfer Assist Level Contact Guard/Hand Hold Chair Transfer Ability Contact Guard/Hand Hold Chair Transfer Technique Sit to/from Ambulatory Chair Transfer Assistive Devices Rolling Walker Lower Body Dressing Ability Assistance X1 Performing Toilet Hygiene Ability Assistance X1 Overall Commode/Toilet Transfer Ability Assistance x1 Commode/Toilet Transfer Technique Sit to/from Ambulatory Rehab OT IP prob,goals,plan Problems Date of Evaluation: 03/16/23 OT IP Problems Bed Mobility,Transfers,Balance ,Self care,Safety Rehab Potential Rehab Potential Good Equipment Needs Assistive Devices Rolling / Wheeled Walker Plan OT intervention Plan Bed Mobility,Transfers,Balance ,Self care,Safety,Therapeutic Exercise OT Plan Frequency BID Duration LOS Discharge Goals Bed Mobility Ability Standby Assistance Sit to Stand Chair Transfer Ability Contact Guard/Hand Hold Chair Transfer Ability Contact Guard/Hand Hold Chair Transfer Technique Sit to/from Ambulatory Chair Transfer Assistive Devices Rolling Walker Feeding Ability Assist with Tray Set Up Lower Body Dress
[2023-03-16 11:27] VITALS: BP 181/76; PULSE 53; RESP 18; TEMP 36.6; O2SAT 95
[2023-03-16 12:00] VITALS: PULSE 54
--- NOTE | 2023-03-16 12:27 | EXP.DC.SUM ---
General Admission date:: 03/12/23 Discharge date: 03/16/23 HPI HPI HPI: This is an 88-year-old female with history of CAD, hypertension, hyperlipidemia presenting with fall.? Patient is confused on arrival, per daughter.? History largely obtained with patient, EMS, daughter.? Patient telling 2 stories, 1 she was doing laundry, 2 she was getting out of bed and fell.? Was down for unknown period of time.? Patient called EMS and was brought to the ER.? Patient complaining of left shoulder pain that is severe, does not radiate, not associated with neurologic deficits.? Patient denying headache, vision changes, numbness/weakness/tingling anywhere, nausea or vomiting, abdominal pain, but has right-sided chest wall pain, neck pain, midline spinal tenderness in thoracic and lumbar spines.? Denies bowel or bladder dysfunction, saddle anesthesia, or any other concerns. Patient is mildly encephalopathic at this time. Sounds like her story has been changing between what she told family members and what she is telling me. We will monitor her overnight. Hospital Course Hospital Course Hospital Course: 88yo F admitted for rhabdo following fall out of bed. Patient reportedly having of arrhythmias that are currently under evaluation by another provider.? Uncertain if this is syncopal event or mechanical, I am suspecting syncopal given her current encephalopathy on admission. Encephalopathy improved but still having some short-term recall issues. Family concerned for memory impairment, would benefit from further eval after finishes antibiotics for UTI.? Patient would benefit from placement for rehab. Graciously excepted by the [facility]. Will discharge for further management and therapy. Problems addressed as follows: Syncope versus mechanical fall -Only sign of infection at this time is urinary tract. Given confusion and fall, initiated on antibiotics. Blood cultures negative. Orthostatics were normal during admission. Echo obtained that is normal. No arrhythmias on telemetry. TSH normal. Would benefit from therapy. Addressing blood pressure with adjustment in medications and addition of lisinopril as below. Patient unsafe to go home by herself. Stable for discharge to nursing facility. PT/OT worked with patient during admission. Recommended placement. Rhabdomyolysis-present on admission after her fall. Improved with fluids. No signs of kidney injury. UTI -In light of confusion, greater than 100,000 CFU's of E. coli, initiated antibiotics. First dose of ceftriaxone on 03/16. Plan to complete 5 days of antibiotics, transition to cefdinir 300 mg twice daily to complete course. Last dose of medication due on 03/20. Arm pain Upper back pain -Suspect secondary to strain from her fall. PT for brace of left arm. Tender in muscles of forearm and anterior left shoulder. Would benefit from referral to orthopedics for further evaluation and possible joint injections. Percocet sent at discharge. Tolerated Toradol during admission. Consider resuming ibuprofen. Anticipate some improvement with rehab, massage, ice. Lidocaine for upper back pain. HTN: Elevated during admission. Continued home amlodipine, Imdur. Continue sotalol for arrhythmia. Added lisinopril 20 mg. Continue this daily. Further management pending monitoring at nursing facility. Anxiety/depression: Continue home Lexapro incdental pulm nodule: Found on CT of chest. Recommend follow-up as an outpatient to further evaluate. Stable for discharge to nursing facility for further therapy. Would benefit from Mini-Mental exam or [place] exam after completing therapy for UTI to assess for mild cognitive impairment. Exam Data for Last 24 hours Vital signs and Labs for Last 24 Hours: Temp Pulse Resp BP Pulse Ox 97.9 F 53 L 18 181/76 H 95 03/16/23 11:27 03/16/23 11:27 03/16/23 11:27 03/16/23 11:27 03/16/23 11:27 Laboratory Results - last 24 hr 03/16/23 06:30: WBC
== END 2023-03-16 15:20 | DRG 565 ==
LOC: ER 14:44 → 2ND 17:17
PROVIDERS: Internal Medicine Adolescent Medicine; Nurse Practitioner Family; Admitting Provider Student in an Organized Health Care Education/Training Program; Emergency Provider Emergency Medicine; PCP Family Medicine; Visit Provider Student in an Organized Health Care Education/Training Program
DX: T79.6XXA Traumatic ischemia of muscle, initial encounter (principal); G93.40 Encephalopathy, unspecified; I10 Essential (primary) hypertension; W19.XXXA Unspecified fall, initial encounter; I25.10 Atherosclerotic heart disease of native coronary artery without angina pectoris; Z95.5 Presence of coronary angioplasty implant and graft; E78.5 Hyperlipidemia, unspecified; I25.2 Old myocardial infarction; W06.XXXA Fall from bed, initial encounter; F41.9 Anxiety disorder, unspecified; F32.A Depression, unspecified; M25.532 Pain in left wrist; R55 Syncope and collapse
CPT/HCPCS: 36415; 70450; 71250; 72125; 72128; 72131; 72192; 73030; 73060; 73070; 73110; 73120; 74176; 80048; 80053; 81001; 82550; 83735; 84100; 84443; 84484; 85025; 87040; 87086; 87088; 87186; 93005; 93306; 97162; 97166; 97530; 99285; C9803; J0696; U0003; U0005

== ENCOUNTER 2024-08-29 18:19 | Emergency (ER) | payer MEDICARE, BC, SELFPAY ==
[2024-08-29 18:21] VITALS: BP 148/66; PULSE 60; RESP 16; TEMP 36.7; O2SAT 96; BMI 24.2
--- NOTE | 2024-08-29 18:41 | XR_ITS ---
PROCEDURE INFORMATION: Exam: XR Left Humerus Exam date and time: 08/29/2024 8:29 PM Age: 89 years old Clinical indication: Injury or trauma; Fall; Blunt trauma (contusions or hematomas); Arm, upper; Left; Additional info: Fall with loss of consciousness TECHNIQUE: Imaging protocol: Radiologic exam of the left humerus. Views: 2 or more views. COMPARISON: CR XR HUMERUS LT 03/12/2023 3:01 PM FINDINGS: Bones/joints: There is no acute fracture or dislocation. Moderate degenerative changes of the left shoulder are noted. Soft tissues: Normal. IMPRESSION: 1. No acute abnormality. 2. Chronic findings as discussed above.
--- NOTE | 2024-08-29 18:41 | XR_ITS ---
PROCEDURE INFORMATION: Exam: XR Left Shoulder Exam date and time: 08/29/2024 8:31 PM Age: 89 years old Clinical indication: Injury or trauma; Fall; Blunt trauma (contusions or hematomas); Shoulder; Left; Additional info: Fall with loss of consciousness TECHNIQUE: Imaging protocol: Radiologic exam of the left shoulder. Views: 2 or more views. COMPARISON: CR XR SHOULDER LT MIN 2V 03/12/2023 3:01 PM FINDINGS: Bones/joints: There is no acute fracture or dislocation. Moderate degenerative changes of the left acromioclavicular and glenohumeral joints are noted. Soft tissues: Normal. IMPRESSION: 1. No acute abnormality. 2. Chronic findings as discussed above.
--- NOTE | 2024-08-29 18:42 | CT_ITS ---
PROCEDURE INFORMATION: Exam: CTA Head With Contrast, Arteriography Exam date and time: 08/29/2024 7:38 PM Age: 89 years old Clinical indication: Injury or trauma; Fall; Blunt trauma; Head; Additional info: Trauma, critical injury suspected TECHNIQUE: Imaging protocol: Computed tomographic angiography of the head with contrast. Exam focused on the arteries. 3D rendering (Not supervised by radiologist): MIP and/or 3D reconstructed images were created by the technologist. Radiation optimization: All CT scans at this facility use at least one of these dose optimization techniques: automated exposure control; mA and/or kV adjustment per patient size (includes targeted exams where dose is matched to clinical indication); or iterative reconstruction. Contrast material: ISOVUE 370; Contrast volume: 80 ml; Contrast route: INTRAVENOUS (IV); COMPARISON: CT ANGIO HEAD 08/29/2024 7:38 PM FINDINGS: ANTERIOR CIRCULATION: Right internal carotid artery: Atherosclerotic calcifications are seen involving the right cavernous internal carotid artery. Mild stenosis is present. Right middle cerebral artery: No occlusion or significant stenosis. No aneurysm. Right anterior cerebral artery: No occlusion or significant stenosis. No aneurysm. Left internal carotid artery: Atherosclerotic calcifications are seen involving the left cavernous internal carotid artery. Mild stenosis is present. Left middle cerebral artery: No occlusion or significant stenosis. No aneurysm. Left anterior cerebral artery: No occlusion or significant stenosis. No aneurysm. POSTERIOR CIRCULATION: Right vertebral artery: No occlusion or significant stenosis. No aneurysm. Left vertebral artery: No occlusion or significant stenosis. No aneurysm. Basilar artery: There is mild stenosis of the mid basilar artery. Right posterior cerebral artery: There is persistent origin of the right posterior cerebral artery. Left posterior cerebral artery: There is severe stenosis of the left P1 segment. Veins: The venous sinuses are patent. Brain: No definite mass, cerebral edema, or midline shift. Cerebral ventricles: No ventriculomegaly. Bones/joints: Unremarkable. No acute fracture. Soft tissues: Unremarkable. IMPRESSION: 1. No large vessel occlusion 2. Severe stenosis of the proximal left HEADWAITER/HEADWAITRESS
--- NOTE | 2024-08-29 18:42 | CT_ITS ---
PROCEDURE INFORMATION: Exam: CT Thoracic Spine Without Contrast Exam date and time: 08/29/2024 7:32 PM Age: 89 years old Clinical indication: Injury or trauma; Fall; Blunt trauma (contusions or hematomas); Additional info: Trauma, critical injury suspected TECHNIQUE: Imaging protocol: Computed tomography of the thoracic spine without contrast. Radiation optimization: All CT scans at this facility use at least one of these dose optimization techniques: automated exposure control; mA and/or kV adjustment per patient size (includes targeted exams where dose is matched to clinical indication); or iterative reconstruction. COMPARISON: CT THORACIC SPINE WO CON 03/12/2023 2:10 PM FINDINGS: Bones/joints: No acute fracture. Age-related degenerative changes. Soft tissues: Unremarkable. IMPRESSION: No evidence for acute fracture.
--- NOTE | 2024-08-29 18:42 | CT_ITS ---
PROCEDURE INFORMATION: Exam: CT Cervical Spine Without Contrast Exam date and time: 08/29/2024 7:29 PM Age: 89 years old Clinical indication: Injury or trauma; Fall; Blunt trauma; Additional info: Trauma, critical injury suspected TECHNIQUE: Imaging protocol: Computed tomography of the cervical spine without contrast. Radiation optimization: All CT scans at this facility use at least one of these dose optimization techniques: automated exposure control; mA and/or kV adjustment per patient size (includes targeted exams where dose is matched to clinical indication); or iterative reconstruction. COMPARISON: CT CERVICAL SPINE WO CON 03/12/2023 2:06 PM FINDINGS: Bones: Bone mineralization is decreased, suggestive of osteopenia. No acute cervical spine fracture is identified. There is mild anterolisthesis of C3 on C4, C4 on C5, C5 on C6, and C6 on C7 due to severe facet arthropathy. Severe degenerative changes of the cervical spine are present. There is no severe spinal canal stenosis. Multilevel neural foraminal narrowing from uncinate spurring and facet arthropathy is noted. Lungs: Minor scarring is present in the lung apices. A nonspecific 4 mm pulmonary nodule is noted in the right lung apex.For patients at low risk (minimal or absent history of smoking and of other known risk factors), no routine follow-up is indicated. For patients at high risk (history of smoking or of other known risk factors), consider optional CT Chest at 12 months. (Reference: Pamela) Vasculature: Atherosclerotic calcifications are present at the carotid bifurcations. Soft tissues: Unremarkable. IMPRESSION: 1. No acute cervical spine fracture. 2. Chronic findings as discussed above. REFERENCES: Pamela H, et al. Guidelines for Management of Incidental Pulmonary Nodules Detected on CT Images: From the Fleischner Society 2017. Radiology. 2017;284(1):228-243.
--- NOTE | 2024-08-29 18:42 | CT_ITS ---
PROCEDURE INFORMATION: Exam: CT Head Without Contrast Exam date and time: 08/29/2024 7:29 PM Age: 89 years old Clinical indication: Injury or trauma; Fall; Blunt trauma (contusions or hematomas); Additional info: Trauma, critical injury suspected TECHNIQUE: Imaging protocol: Computed tomography of the head without contrast. Radiation optimization: All CT scans at this facility use at least one of these dose optimization techniques: automated exposure control; mA and/or kV adjustment per patient size (includes targeted exams where dose is matched to clinical indication); or iterative reconstruction. COMPARISON: CT HEAD/BRAIN WO CON 03/12/2023 2:03 PM FINDINGS: Brain: There is no acute intracranial hemorrhage, cerebral edema, or midline shift. Age-related cerebral and cerebellar volume loss is present. Cerebral ventricles: No hydrocephalus. Paranasal sinuses: A tiny mucous retention cyst is present in the right maxillary sinus. There is no acute sinusitis. Mastoid air cells: Visualized mastoid air cells are well aerated. Orbital cavities: The visualized orbits appear unremarkable. Bones: Unremarkable. No acute fracture. Soft tissues: Unremarkable. Vasculature: Atherosclerotic calcifications are seen involving the cavernous carotid arteries. IMPRESSION: No acute intracranial abnormality.
--- NOTE | 2024-08-29 18:42 | CT_ITS ---
PROCEDURE INFORMATION: Exam: CTA Neck With Contrast Exam date and time: 08/29/2024 7:38 PM Age: 89 years old Clinical indication: Injury or trauma; Fall; Blunt trauma; Head; Additional info: Trauma, critical injury suspected TECHNIQUE: Imaging protocol: Computed tomographic angiography of the neck with contrast. Exam focused on the cervical segments of the vasculature. 3D rendering (Not supervised by radiologist): MIP and/or 3D reconstructed images were created by the technologist. Radiation optimization: All CT scans at this facility use at least one of these dose optimization techniques: automated exposure control; mA and/or kV adjustment per patient size (includes targeted exams where dose is matched to clinical indication); or iterative reconstruction. Contrast material: ISOVUE 370; Contrast volume: 80 ml; Contrast route: INTRAVENOUS (IV); COMPARISON: CT CERVICAL SPINE WO CON 08/29/2024 7:29 PM FINDINGS: Right common carotid artery: No stenosis. No dissection or occlusion. Right internal carotid artery: Calcified and noncalcified plaque is noted at the right internal carotid artery origin. This is causing less than 25% stenosis. Right external carotid artery: No occlusion or stenosis of the origin. Left common carotid artery: There is moderate atherosclerotic narrowing of the left common carotid artery origin. Stenosis might be overestimated due to associated motion artifact. Left internal carotid artery: Calcified and noncalcified plaque is present at the left internal carotid artery origin. This is causing approximately 60% stenosis. The remaining left cervical ICA is unremarkable. Left external carotid artery: No occlusion or stenosis of the origin. Right vertebral artery: There is mild stenosis of the right vertebral artery at the C4-C5 and C5-C6 levels due to extrinsic compression from uncinate spurring. Left vertebral artery: No stenosis. No dissection or occlusion. Aorta: Atherosclerotic calcifications are noted within the aortic arch. Lymph nodes: There appears to be a partially imaged enlarged right hilar lymph node, measuring approximately 2.0 x 1.5 cm. Calcified left hilar and subcarinal lymph nodes are present, likely due to old granulomatous disease. Soft tissues: Normal. No significant soft tissue swelling. Bones/joints: Severe degenerative changes of the cervical spine are present. Lungs: Calcified granulomas are present in the left upper lobe. Tree-in-bud opacities and tiny pulmonary nodules are noted in the right upper lobe.For patients at low risk (minimal or absent history of smoking and of other known risk factors), no routine follow-up is indicated. For patients at high risk (history of smoking or of other known risk factors), consider optional CT Chest at 12 months. (Reference: Pamela) IMPRESSION: 1. 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 Less than 25% stenosis of the right ICA origin 3. Chronic findings as discussed above. REFERENCES: 1. Pamela Cisneros, et al. Guidelines for Management of Incidental Pulmonary Nodules Detected on CT Images: From the Fleischner Society 2017. Radiology. 2017;284(1):228-243. 2. NASCET CRITERIA. The degree of stenosis in the cervical segment of the internal carotid artery is based on NASCET criteria. Normal is no stenosis. Mild is less than 50% stenosis. Moderate is 50-69% stenosis. Severe is 70% to 99% stenosis. Total occlusion is no detectable patent lumen.
--- NOTE | 2024-08-29 18:42 | CT_ITS ---
PROCEDURE INFORMATION: Exam: CT Lumbar Spine Without Contrast Exam date and time: 08/29/2024 7:35 PM Age: 89 years old Clinical indication: Injury or trauma; Fall; Blunt trauma (contusions or hematomas); Additional info: Trauma, critical injury suspected TECHNIQUE: Imaging protocol: Computed tomography of the lumbar spine without contrast. Radiation optimization: All CT scans at this facility use at least one of these dose optimization techniques: automated exposure control; mA and/or kV adjustment per patient size (includes targeted exams where dose is matched to clinical indication); or iterative reconstruction. COMPARISON: CT LUMBAR SPINE WO CON 03/12/2023 2:18 PM FINDINGS: Bones/joints: 4 mm anterolisthesis at L3-L4. Severe degenerative disc space loss at T12-L1 and L1-L2 and L5-S1. Severe bilateral facet arthropathy L3-L4. Probable severe spinal stenosis at the level of L3-L4. There is also likely severe spinal stenosis at the level of L2-L3. Due to facet arthropathy disc bulges and ligamentum flavum hypertrophy. 2 mm anterolisthesis L4-L5. Soft tissues: Unremarkable. IMPRESSION: 1. Severe bilateral facet arthropathy L3-L4. Probable severe spinal stenosis at the level of L3-L4. There is also likely severe spinal stenosis at the level of L2-L3. Due to facet arthropathy disc bulges and ligamentum flavum hypertrophy. Consider MRI for further assessment. 2. Severe degenerative disc space loss at T12-L1 and L1-L2 and L5-S1. 3. No definite fractures.
--- NOTE | 2024-08-29 18:48 | ED_ITS ---
Discharge Plan Disposition Patient Disposition: Home, Self-Care Condition: Good Prescriptions Prescriptions: New cephalexin 500 mg capsule 500 mg PO BID 7 Days Qty: 14 0RF No Action isosorbide mononitrate 30 mg tablet extended release 24 hr 30 mg PO DAILY ezetimibe 10 mg tablet 10 mg PO DAILY Patient Comments: TAKE 1 TABLET BY MOUTH ONCE DAILY hydrochlorothiazide 25 mg tablet 25 mg PO DAILY Patient Comments: TAKE 1 TABLET BY MOUTH ONCE DAILY niacin 50 mg tablet 50 mg PO DAILY furosemide 20 mg tablet 20 mg PO DAILY Qty: 7 0RF potassium chloride 10 mEq tablet extended release PO escitalopram oxalate [Lexapro] 10 mg tablet 10 mg PO DAILY Qty: 30 3RF amlodipine 5 MG tablet 5 mg PO DAILY Referrals Follow up/Referrals: Maury Vigil MD [Primary Care Provider] - See instructions Activity Restrictions/Add. Instructions Additional Instructions/Restrictions: Please return to PCP UTC or ER for suture removal in 5 days. Return sooner for any redness drainage or swelling. Please return emergently for any protracted headache protracted vomiting change in level of consciousness. I have sent a prescription into your pharmacy. Please take till gone. Clinical Impressions Clinical Impression: Laceration Fall Qualifiers: Encounter type: initial encounter Qualified Code(s): W19.XXXA - Unspecified fall, initial encounter CHI (closed head injury) Qualifiers: Encounter type: initial encounter Qualified Code(s): S09.90XA - Unspecified injury of head, initial encounter Instructions Patient Instructions: DI for Laceration Repair, DI for Closed Head Injury Print Language Print Language: Somali Discharge ED Provider: Sumit Sultana General Adult HPI <TIFFANY Gastelum - Last Filed: 08/29/24 23:07> General Chief complaint: Fall Stated complaint: AO 08/29/24 1730 Laceration forehead,left leg,hand Time Seen by Provider: 08/29/24 18:31 Mode of Arrival: Wheelchair Source of Information: Patient Limitations: No Limitations Description of Symptoms (Recalled from ER Triage Doc. by RN): Patient reports tripping on a block of wood and falling. Patient hit her head, no LOC, lac noticed to left rodriguez and right pinky finger. Patient is A&O. History of Present Illness HPI narrative: Patient presents for evaluation of a fall. Patient tripped over a log in her driveway falling striking her head and also at home knocking her unconscious. Her daughter was present at the time of the injury and saw it happen. Patient was unconscious for under a minute. On arrival patient reports slight headache but denies any other bony injury other than her left shoulder. She suffered a laceration to her forehead and several skin tears. She denies any fever chills headache nausea vomiting change in level of consciousness. Patient is severely hard of hearing and is supposed to wear hearing aids but does not have them in currently. Related Data Home Medications ?Medication ?Instructions ?Recorded ?Confirmed amlodipine 5 mg tablet 5 mg PO DAILY Hypertension 12/23/21 12/09/23 ezetimibe 10 mg tablet 10 mg PO DAILY Cholesterol 01/06/23 12/09/23 isosorbide mononitrate 30 mg 30 mg PO DAILY Hypertension 01/06/23 12/09/23 tablet,extended release 24 hr hydrochlorothiazide 25 mg tablet 25 mg PO DAILY 06/11/23 12/09/23 niacin 50 mg tablet 50 mg PO DAILY 09/09/23 12/09/23 potassium chloride 10 mEq meq PO 12/09/23 12/09/23 tablet,extended release Previous Rx's ?Medication ?Instructions ?Recorded furosemide 20 mg tablet 20 mg PO DAILY #7 tabs 09/09/23 escitalopram oxalate 10 mg tablet 10 mg PO DAILY #30 tabs 07/11/24 (Lexapro) cephalexin 500 mg capsule 500 mg PO BID 7 days #14 caps 08/29/24 Allergies Allergy/AdvReac Type Severity Reaction Status Date / Time aminophylline Allergy Intermediate ELEVATED Verified 12/09/23 10:05 HEART RATE codeine Allergy Intermediate ITCHING Verified 12/09/23 10:05 meperidine Allergy Intermediate Unknown Verified 12/09/23 10:05 allergy reaction Wrcaxik-ARV-YyD Reductase AdvReac Dizziness Verified 12/09/23 10:05 Inhibitor <TIFFANY Gastelum - Last Filed: 08/29/24 23:07> ROS Obtained: Yes Systems reviewed as appropriate & no additional complaints except as documented Physical Exam <TIFFANY Gastelum - Last Filed: 08/29/24 23:07> General General appearance: alert and in no apparent distress Head Head exam: other (Laceration to the right upper forehead no bony deformity noted.) Eye Eye exam: Present normal appearance, PERRL and EOMI ENT ENT exam: Present normal exam, normal oropharynx and mucous membranes moist Neck Neck exam: Present normal inspection, full ROM and trachea midline; Absent tenderness or lymphadenopathy Chest Chest inspection: Present normal inspection and symmetric chest wall rise Respiratory Respiratory exam: Present normal lung sounds bilaterally Cardiovascular Cardiovascular exam: Present regular rate Neurological Exam Neurological exam: Present alert, oriented X3, CN II-XII intact and normal gait; Absent motor sensory deficit Psychiatric Psychiatric exam: Present normal affect and normal mood Medical Decision Making <TIFFANY Gastelum - Last Filed: 08/29/24 23:07> Medical Records Medical records reviewed: Yes I reviewed the patient's medical records. Screening: Per USPSTF and CDC recommendations, given the prevalence of disease in our region, it is our hospital?s policy to screen for HIV and viral Hepatitis for all patients aged 18 and over and those with ongoing risk factors. Emeka Inquiry Pt receiving controlled substance: No Vital Signs: 08/29/24 18:21 08/29/24 20:20 08/29/24 20:30 Temperature 98.1 F Temperature Source Oral Pulse Rate 65 64 Pulse Rate [Radial] 60 Respiratory Rate 16 Blood Pressure 148/100 H 170/86 H Blood Pressure [Right Arm] 148/66 H Blood Pressure Mean [Right Arm] 93 Blood Pressure Source Blood Pressure Source [Right Arm] Automatic Cuff Blood Pressure Position Blood Pressure Position [Right Arm] Sitting 02 Sat by Pulse Oximetry 96 94 L 92 L Oxygen Delivery Method Room Air 08/29/24 21:47 Temperature 97.3 F L Temperature Source Oral Pulse Rate 64 Pulse Rate [Radial] Respiratory Rate 16 Blood Pressure 170/86 H Blood Pressure [Right Arm] Blood Pressure Mean [Right Arm] Blood Pressure Source Automatic Cuff Blood Pressure Source [Right Arm] Blood Pressure Position Supine Blood Pressure Position [Right Arm] 02 Sat by Pulse Oximetry Oxygen Delivery Method Room Air Lab Data Lab results reviewed: Yes I reviewed the patient's lab results. Lab Results 08/29/24 18:57: WBC 6.7, RBC 3.61 L, Hgb 11.8 L, Hct 36.6 L, MCV 101.4 H, MCH 32.6 H, MCHC 32.1, RDW 14.0, Plt Count 279, MPV 8.3, Neut % (Auto) 51.2, Lymph % (Auto) 40.0, [place] % (Auto) 5.1, Eos % (Auto) 2.9, Baso % (Auto) 0.8, Neut # (Auto) 3.4, Lymph # (Auto) 2.7, [place] # (Auto) 0.4, Eos # (Auto) 0.2, Baso # (Auto) 0.1, PT 10.8, INR 0.96, Sodium 133 L, Potassium 4.4, Chloride 98, Carbon Dioxide 32 H, Anion Gap 7.4, BUN 21 H, Creatinine 0.80, Estimated Creat Clear 42, Estimated GFR 68, Est GFR ( Amer) 82, Glucose 102 H, Calcium 9.8, Total Bilirubin 0.4, AST 32, ALT 19, Alkaline Phosphatase 60, Total Protein 6.8, Albumin 4.0, Globulin 2.8, Albumin/Globulin Ratio 1.4 08/29/24 18:57 08/29/24 18:57 Orders (Tests/Meds): ED MEDICATIONS Discontinued Medications Generic Name Dose Route Start Last Admin Trade Name Derikq PRN Reason Stop Dose Admin Acetaminophen 1,000 mg 08/29/24 18:41 08/29/24 19:04 Acetaminophen 1,000mg/100ml Vial IV 08/29/24 18:42 1,000 mg ONCE ONE Administration Cephalexin HCl 500 mg 08/29/24 19:20 08/29/24 20:08 Cephalexin 500mg Capsule PO 08/29/24 19:21 500 mg ONCE ONE Administration Lactated Ringer's 1,000 mls @ 999 mls/hr 08/29/24 18:41 08/29/24 19:03 Lactated Ringer's 1000 Ml Bag IV 08/29/24 19:41 999 mls/hr .Q1H1M ONE Administration Iopamidol 80 ml 08/29/24 19:26 08/29/24 19:27 Iopamidol-370 (76%);100ml Bottle IV 08/29/24 19:27 80 ml ONCE ONE Administration Lidocaine/Epinephrine 20 ml 08/29/24 19:20 08/29/24 20:06 Lidocaine 1% W/Epi 1:100,000 20ml Vial SQ 08/29/24 19:21 20 ml ONCE ONE Administration Sodium Chloride 10 ml 08/29/24 19:26 08/29/24 19:27 Sodium Chloride 0.9% 10ml Syr (Rad Only) IV 08/29/24 19:27 10 ml ONCE ONE Administration Sodium Chloride 50 ml 08/29/24 19:26 08/29/24 19:27 0.9 % Sodium Chloride 50 Ml Vial IV 08/29/24 19:27 50 ml ONCE ONE Administration Tetanus/Reduced Diphtheria/Acell Pertussis 0.5 ml 08/29/24 19:20 08/29/24 20:08 Tet/Diphth/Pert-Adult 0.5ml Syringe IM 08/29/24 19:21 0.5 ml .ONCE ONE Administration ORDERS Category Date Time Status CT angio head Stat Cat Scan 08/29/24 18:[address] angio neck Stat Cat Scan 08/29/24 18:[address] cervical spine wo con Stat Cat Scan 08/29/24 18:[address] head/brain wo con Stat Cat Scan 08/29/24 18:[address] lumbar spine wo con Stat Cat Scan 08/29/24 18:[address] thoracic spine wo con Stat Cat Scan 08/29/24 18:42 Completed Humerus XR left [XR humerus LT] Stat Exams 08/29/24 18:41 Completed Shoulder XR left minimum 2 views [XR shoulder LT min 2V Exams 08/29/24 18:41 Completed ] Stat CBC w/Auto Diff [Complete Blood Count Auto Diff] Stat Lab 08/29/24 18:57 Completed CMP [Comprehensive Metabolic Panel] Stat Lab 08/29/24 18:57 Completed INR [Prothrombin Time INR] Stat Lab 08/29/24 18:57 Completed Medical Decision Narrative: In summary patient is a 89-year-old female who presents to the emergency department for evaluation of a fall and laceration with positive loss of consciousness. Patient is hemodynamically stable upon arrival, afebrile. Physical exam is remarkable for 4 cm stellate laceration to the right upper forehead with no bony deformity noted. No nuchal rigidity. No C-spine T-spine or L-spine tenderness. Glascow coma score is currently 15 although the patient is severely hard of hearing she does respond appropriately. She has several skin tears including right fourth finger left hand left medial calf with no active hemorrhage. Patient is on aspirin. She is a retired [employer]. Differential diagnosis includes simple laceration versus closed head injury versus intercranial bleed versus C-spine injury versus fracture etc. Initial workup will be conducted with hematologic labs, trauma CT scans of the head cervical thoracic lumbar spines CTA of the head and neck plain films of the left shoulder and humerus. Initial interventions include crystalloid bolus Tylenol Tdap. 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 Upon repeat evaluation patient's Glascow coma score remains 15.. Given this forehead laceration was repaired primarily with twelve 6.0 nylon sutures in an interrupted fashion. Given this patient is appropriate for discharge with prescription for Keflex and strict return precautions for closed head injury. <Sumit Sultana MD - Last Filed: 08/30/24 16:49> Vital Signs: 08/29/24 18:21 08/29/24 20:20 08/29/24 20:30 Temperature 98.1 F Temperature Source Oral Pulse Rate 65 64 Pulse Rate [Radial] 60 Respiratory Rate 16 Blood Pressure 148/100 H 170/86 H Blood Pressure [Right Arm] 148/66 H Blood Pressure Mean [Right Arm] 93 Blood Pressure Source Blood Pressure Source [Right Arm] Automatic Cuff Blood Pressure Position Blood Pressure Position [Right Arm] Sitting 02 Sat by Pulse Oximetry 96 94 L 92 L Oxygen Delivery Method Room Air 08/29/24 21:47 Temperature 97.3 F L Temperature Source Oral Pulse Rate 64 Pulse Rate [Radial] Respiratory Rate 16 Blood Pressure 170/86 H Blood Pressure [Right Arm] Blood Pressure Mean [Right Arm] Blood Pressure Source Automatic Cuff Blood Pressure Source [Right Arm] Blood Pressure Position Supine Blood Pressure Position [Right Arm] 02 Sat by Pulse Oximetry Oxygen Delivery Method Room Air Lab Data Lab Results 08/29/24 18:57: WBC 6.7, RBC 3.61 L, Hgb 11.8 L, Hct 36.6 L, MCV 101.4 H, MCH 32.6 H, MCHC 32.1, RDW 14.0, Plt Count 279, MPV 8.3, Neut % (Auto) 51.2, Lymph % (Auto) 40.0, [place] % (Auto) 5.1, Eos % (Auto) 2.9, Baso % (Auto) 0.8, Neut # (Auto) 3.4, Lymph # (Auto) 2.7, [place] # (Auto) 0.4, Eos # (Auto) 0.2, Baso # (Auto) 0.1, PT 10.8, INR 0.96, Sodium 133 L, Potassium 4.4, Chloride 98, Carbon Dioxide 32 H, Anion Gap 7.4, BUN 21 H, Creatinine 0.80, Estimated Creat Clear 42, Estimated GFR 68, Est GFR ( Amer) 82, Glucose 102 H, Calcium 9.8, Total Bilirubin 0.4, AST 32, ALT 19, Alkaline Phosphatase 60, Total Protein 6.8, Albumin 4.0, Globulin 2.8, Albumin/Globulin Ratio 1.4 Orders (Tests/Meds): ED MEDICATIONS Discontinued Medications Generic Name Dose Route Start Last Admin Trade Name Freq PRN Reason Stop Dose Admin Acetaminophen 1,000 mg 08/29/24 18:41 08/29/24 19:04 Acetaminophen 1,000mg/100ml Vial IV 08/29/24 18:42 1,000 mg ONCE ONE Administration Cephalexin HCl 500 mg 08/29/24 19:20 08/29/24 20:08 Cephalexin 500mg Capsule PO 08/29/24 19:21 500 mg ONCE ONE Administration Lactated Ringer's 1,000 mls @ 999 mls/hr 08/29/24 18:41 08/29/24 19:03 Lactated Ringer's 1000 Ml Bag IV 08/29/24 19:41 999 mls/hr .Q1H1M ONE Administration Iopamidol 80 ml 08/29/24 19:26 08/29/24 19:27 Iopamidol-370 (76%);100ml Bottle IV 08/29/24 19:27 80 ml ONCE ONE Administration Lidocaine/Epinephrine 20 ml 08/29/24 19:20 08/29/24 20:06 Lidocaine 1% W/Epi 1:100,000 20ml Vial SQ 08/29/24 19:21 20 ml ONCE ONE Administration Sodium Chloride 10 ml 08/29/24 19:26 08/29/24 19:27 Sodium Chloride 0.9% 10ml Syr (Rad Only) IV 08/29/24 19:27 10 ml ONCE ONE Administration Sodium Chloride 50 ml 08/29/24 19:26 08/29/24 19:27 0.9 % Sodium Chloride 50 Ml Vial IV 08/29/24 19:27 50 ml ONCE ONE Administration Tetanus/Reduced Diphtheria/Acell Pertussis 0.5 ml 08/29/24 19:20 08/29/24 20:08 Tet/Diphth/Pert-Adult 0.5ml Syringe IM 08/29/24 19:21 0.5 ml .ONCE ONE Administration ORDERS Category Date Time Status CT angio head Stat Cat Scan 08/29/24 18:[address] angio neck Stat Cat Scan 08/29/24 18:[address] cervical spine wo con Stat Cat Scan 08/29/24 18:[address] head/brain wo con Stat Cat Scan 08/29/24 18:[address] lumbar spine wo con Stat Cat Scan 08/29/24 18:[address] thoracic spine wo con Stat Cat Scan 08/29/24 18:42 Completed Humerus XR left [XR humerus LT] Stat Exams 08/29/24 18:41 Completed Shoulder XR left minimum 2 views [XR shoulder LT min 2V Exams 08/29/24 18:41 Completed ] Stat CBC w/Auto Diff [Complete Blood Count Auto Diff] Stat Lab 08/29/24 18:57 Completed CMP [Comprehensive Metabolic Panel] Stat Lab 08/29/24 18:57 Completed INR [Prothrombin Time INR] Stat Lab 08/29/24 18:57 Completed Medical Decision Narrative: In summary patient is a 89-year-old female who presents to the emergency department for evaluation of a fall and laceration with positive loss of consciousness. Patient is hemodynamically stable upon arrival, afebrile. Physical exam is remarkable for 4 cm stellate laceration to the right upper forehead with no bony deformity noted. No nuchal rigidity. No C-spine T-spine or L-spine tenderness. Glascow coma score is currently 15 although the patient is severely hard of hearing she does respond appropriately. She has several skin tears including right fourth finger left hand left medial calf with no active hemorrhage. Patient is on aspirin. She is a retired [employer]. Differential diagnosis includes simple laceration versus closed head injury versus intercranial bleed versus C-spine injury versus fracture etc. Initial workup will be conducted with hematologic labs, trauma CT scans of the head cervical thoracic lumbar spines CTA of the head and neck plain films of the left shoulder and humerus. Initial interventions include crystalloid bolus Tylenol Tdap. 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 Upon repeat evaluation patient's Glascow coma score remains 15.. Given this forehead laceration was repaired primarily with twelve 6.0 nylon sutures in an interrupted fashion. Given this patient is appropriate for discharge with prescription for Keflex and strict return precautions for closed head injury. I was consulted by the ADÁN, and we discussed the complexity of the problems being addressed. I approved the treatment and management plan for this patient's care in the Emergency Department, thus performing a substantive portion of the medical decision making. Sumit Sultana MD Procedures <TIFFANY Gastelum - Last Filed: 08/29/24 23:07> Laceration Laceration 1: Site: face (Right upper forehead) Side (If applicable): right Size (cm): 4 Description: stellate Depth: simple, single layer Local Anesthetic: lidocaine 1% and with epi Amount of anesthesia used (mL): 10 Pre-repair: wound explored, irrigated extensively and deep structures intact Skin layer closed with: nylon Size (cm): 6-0 Number of sutures: 12 Technique: simple, interrupted Critical Care <TIFFANY Gastelum - Last Filed: 08/29/24 23:07> Critical Care Time Critical Care Time: No
[2024-08-29] MEDS: LACTATED RINGERS 1000ML 1,000 ML 999 ML IV (19:03)
[2024-08-29] MEDS: ACETAMINOPHEN 1,000MG/100ML VIAL 1000 MG IV (19:04)
[2024-08-29 19:06] LABS: Basophils # 0.1 K/mm3 (0-0.2); Basophils % 0.8 % (0.1-2.0); Eosinophils # 0.2 K/mm3 (0.0-0.4); Eosinophils % 2.9 % (0.1-12.0); Hematocrit 36.6 % (37.0-47.0); Hemoglobin 11.8 g/dL (12.2-16.2); Lymphocytes # 2.7 K/mm3 (0.7-4.5); Mean Corpuscular HGB Conc 32.1 g/dL (31.8-35.4); Mean Corpuscular Hemoglobin 32.6 pg (27.0-31.2); Mean Corpuscular Volume 101.4 fl (81-99); Mean Platelet Volume 8.3 fl (7.4-10.4); Monocytes # 0.4 K/mm3 (0.1-1.0); Monocytes % 5.1 % (1.7-9.3); Neutrophils # 3.4 K/mm3 (1.8-7.8); Neutrophils % 51.2 % (37.0-80.0); Platelet Count 279 K/mm3 (142-424); Red Blood Count 3.61 M/mm3 (4.20-5.40); White Blood Count 6.7 K/mm3 (4.8-10.8)
[2024-08-29 19:14] LABS: Chloride 98 mmol/L (98-107)
[2024-08-29 19:15] LABS: Potassium 4.4 mmoL/L (3.5-5.1); Sodium 133 mmol/L (136-145)
[2024-08-29 19:17] LABS: Alanine Aminotransferase 19 U/L (12-78); Anion Gap 7.4 mEq/L (5-15); Aspartate Amino Transferase 32 U/L (14-36); Blood Urea Nitrogen 21 mg/dl (7-17); Carbon Dioxide 32 mmol/L (22.0-30.0); Creatinine Clearance Estimated 42 mL/min (50-200); Estimated Glomerular Filt Rate 68 ml/min (>60); GFR (African American) 82 ML/MIN (>60); INR 0.96 (0.9-1.1); Prothrombin Time 10.8 seconds (10.1-12.5)
[2024-08-29 19:18] LABS: Albumin/Globulin Ratio 1.4 (1.1-1.8); Alkaline Phosphatase 60 U/L (38-126); Bilirubin,Total 0.4 mg/dl (0.2-1.3); Calcium 9.8 mg/dl (8.4-10.2); Globulin 2.8 g/dL (1.3-3.2); Glucose 102 mg/dl (74-100); Total Protein,Serum 6.8 g/dl (6.3-8.2)
[2024-08-29] MEDS: IOPAMIDOL-370 (76%);100ML BOTTLE 80 ML IV (19:27)
[2024-08-29] MEDS: 0.9 % SODIUM CHLORIDE 50 ML VIAL IV (19:27)
[2024-08-29] MEDS: SODIUM CHLORIDE 0.9% 10ML SYR (RAD ONLY) 10 ML IV (19:27)
[2024-08-29] MEDS: LIDOCAINE 1% W/EPI 1:100,000 20ML VIAL 20 ML SQ (20:06)
[2024-08-29] MEDS: cephALEXin 500MG CAPSULE 500 MG PO (20:08)
[2024-08-29] MEDS: TET/DIPHTH/PERT-ADULT 0.5ML SYRINGE 0.5 ML IM (20:08)
[2024-08-29 20:20] VITALS: BP 148/100; PULSE 65; O2SAT 94
[2024-08-29 20:30] VITALS: BP 170/86; PULSE 64; O2SAT 92
[2024-08-29 21:47] VITALS: BP 170/86; PULSE 64; RESP 16; TEMP 36.3; O2SAT 95
== END 2024-08-29 21:53 | disposition home or self-care (01) ==
PROVIDERS: Physician Assistant; Emergency Provider Emergency Medicine; PCP Family Medicine
DX: S09.90XA Unspecified injury of head, initial encounter (principal); S01.81XA Laceration without foreign body of other part of head, initial encounter; S81.802A Unspecified open wound, left lower leg, initial encounter; W01.198A Fall on same level from slipping, tripping and stumbling with subsequent striking against other object, initial encounter; Z23 Encounter for immunization
CPT/HCPCS: 12013; 70450; 70496; 70498; 72125; 72128; 72131; 73030; 73060; 80053; 85025; 85610; 90471; 90715; 96361; 96374; 99285; J0131; J7120; Q9967